=== PATIENT | female | born 1945 | race Caucasian/White ===

== ENCOUNTER 2022-01-28 10:14 | Inpatient (IN) | payer MEDICARE, OTHER, SELFPAY ==
[2022-01-28] VITALS (11 sets, daily range): BP systolic 110–134; BP diastolic 49–67; PULSE 70–82; RESP 14–20; TEMP 36.5–37.1; O2SAT 88–99
--- NOTE | ~2022-01-28 | US_ITS ---
EXAMINATION: US venous doppler [facility] DATE: 01/29/2022 11:06 INDICATION: Shortness of breath TECHNIQUE: Madrigal scale images without and with compression and Doppler images of the bilateral lower e xtremity veins were obtained. COMPARISON: None FINDINGS: The right common femoral vein, profunda femoral vein, femoral vein, popliteal vein, peroneal trunk, p osterior tibial veins, and greater saphenous vein are patent. There is partial thrombosis of the left femoral vein The left common femoral vein, profunda femoral v ein, popliteal vein, peroneal trunk, posterior tibial veins, and greater saphenous vein are patent. IMPRESSION: 1. Partial thrombosis of the left femoral vein, otherwise patent bilateral lower extremity veins. No evidence of deep venous thrombosis. Reviewed, dictated and finalized at location L. IMPRESSION: 1. Partial thrombosis of the left femoral vein, otherwise patent bilateral lowe r extremity veins. No evidence of deep venous thrombosis.
--- NOTE | ~2022-01-28 | CT_ITS ---
EXAMINATION: CT abdomen pelvis wo con DATE: 02/01/2022 16:43 INDICATION: Abdominal pain, nausea and vomiting TECHNIQUE: Computed tomography (CT) of the abdomen and pelvis was performed without intravenous contr ast. Automated exposure control and iterative reconstruction technique were employed. Exam dose: 112 3.29 mGy-cm total exam DLP. COMPARISON: None. FINDINGS: Bilateral lower lobe and lingular dependent infiltrate/atelectasis. Normal heart size. No p ericardial or pleural effusion. Status post cholecystectomy. No hepatic, splenic, pancreatic, and adrenal or renal space-occupying ma ss lesion is evident on this limited noncontrast examination. No bile duct or pancreatic duct dilatat ion. No urinary tract calculus or hydroureteronephrosis. There is prominent calcification of the abdominal aorta and iliac arteries but no aneurysm of these s tructures. Pelvic calcifications the origins of the celiac and superior mesenteric and renal arteries . There is stenosis of the celiac origin due to right diaphragmatic bruno, demonstrated to better adva ntage on 01/20/2022 CT chest examination. No intraperitoneal or retroperitoneal or pelvic mass lesion or adenopathy or ascites. Diverticulosis of left and right colon; no CT evidence of diverticulitis. No bowel obstruction, bowel wall thickening, pneumatosis or intraperitoneal free air. The urinary bladder appears unremarkable except for streak artifact from bilateral hip replacements. Right lower back generator device with posterior thoracic spinal neurotransmitter leads. There is mottled lucency of the skeletal structures, best demonstrated at the vertebrae sacrum and pe lvic bones; consider multiple myeloma and metastatic disease. Correlation with serum protein electrop horesis and bone scan may be of benefit as clinically appropriate. Degenerative changes of apophyseal joints with associated grade 1 anterolisthesis at L4-5. Moderately severe degenerative disc disease at L4-5. 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 Reviewed, dictated and finalized at location B. 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
--- NOTE | ~2022-01-28 | XR_ITS ---
EXAMINATION: XR chest 1V portable DATE: 01/28/2022 10:59 INDICATION: Dyspnea. Back pressure. TECHNIQUE: frontal and lateral views of the chest were obtained. COMPARISON: None FINDINGS: 1 streaky atelectasis/scarring at the right apex and at the lateral aspect of the bilateral lower clarence g zones. No other airspace opacities, pulmonary edema, pleural effusion or pneumothorax. The cardiome diastinal silhouette is normal. Spinal stimulator leads project over the central canal at the mid to lower thoracic spine distal tips at the level of T7. Globular amorphous calcification projecting bree g the middle facet of the right greater tuberosity consistent with likely infraspinatus calcific tend initis. IMPRESSION: 1. Mild streaky atelectasis/scarring at the right apex and bilateral lung bases. Reviewed, dictated and finalized at location A. IMPRESSION: 1. Mild streaky atelectasis/scarring at the right apex and bilateral lung bases .
--- NOTE | ~2022-01-28 | CT_ITS ---
EXAMINATION: CTA chest PE protocol DATE: 01/28/2022 12:43 INDICATION: Shortness of breath and cough TECHNIQUE: Computed tomography angiography (CTA) of the chest was performed with 200 mL Omnipaque-350 intravenous contrast timed to evaluate the pulmonary arteries. Coronal maximum intensity projection 3D-reconstructions were created by the technologist. The dose-length product (DLP) was 407.31 mGy-cm. Automated exposure control and iterative reconstruction technique were employed. COMPARISON: None. FINDINGS: The pulmonary arteries are well-opacified. A pulmonary embolism is identified in a peripher al branch in the posteromedial aspect of the right lower lobe.. There are small pleural effusions. No pathologically enlarged thoracic lymph nodes are identified. The heart size is normal. Calcified cor onary artery atherosclerosis is noted. There is severe emphysema. There is mild dependent atelectasis . Scarring and atelectasis are noted in the right lung apex. There is no pneumothorax. The gallbladde r is surgically absent. Neurostimulator leads end of the central spinal canal. There is moderate thor acic spondylosis. There is stenosis at the origin of the celiac axis, with poststenotic dilatation, caused by the diaphragmatic crura on the right IMPRESSION: 1. Right lower lobe pulmonary embolus. These findings were discussed with Dr. Greg Boyle DO i n the Emergency Department at 1256 hours on 01/28/2022 12:58 CDT. 2. Stenosis at the origin of the celiac axis causing by the right diaphragmatic crura which can be as sociated with median arcuate ligament syndrome. Reviewed, dictated and finalized at location B. IMPRESSION: 1. Right lower lobe pulmonary embolus. These findings were discussed with Dr. Maria G Boyle DO in the Emergency Department at 1256 hours on 01/28/2022 12: 58 CDT. 2. Stenosis at the origin of the celiac axis causing by the right diaphragmatic crura which can be associated with median arcuate ligament syndrome.
--- NOTE | 2022-01-28 10:33 | ECG_ITS ---
Measurements Intervals [place] Rate: 82 P: 50 [place]: 150 QRS: 12 QRSD: 87 T: 49 QT: 347 QTc: 406 Interpretive Statements SINUS RHYTHM BASELINE ARTIFACT- I, II, III, AVF NORMAL ECG Electronically Signed On 01-28-2022 10:54:33 CDT by Max Mckeon D.O.
[2022-01-28 10:54] LABS: Hematocrit 30.3 % (37.0-47.0); Hemoglobin 9.6 g/dL (12.0-15.0); Mean Corpuscular HGB Conc 31.7 g/dl (32-36); Mean Corpuscular Volume 110.6 fl (80-100); Mean Platelet Volume 8.3 fl (7.4-10.4); Platelet Count Result 265 k/mm3 (150-375); Red Blood Count 2.74 M/mm3 (4.2-5.4); White Blood Count 7.6 K/mm3 (4.5-10.0)
[2022-01-28 10:59] LABS: Alanine Aminotransferase 12 U/L (6-35); Albumin Level 2.6 g/dL (3.5-5.1); Alkaline Phosphatase 78 U/L (38-126); Anion Gap 3 mmol/L (8-16); Aspartate Amino Transferase 18 U/L (14-36); Bilirubin,Total 0.4 mg/dL (0.2-1.3); Blood Urea Nitrogen 28 mg/dL (7-17); Calcium 8.2 mg/dL (8.4-10.2); Carbon Dioxide 30 mmol/L (22-30); Chloride 98 mmol/L (98-107); Estimated CRCL calculation 34 ml/min; Estimated Glomerular Filt Rate 44; Glucose 85 mg/dL (65-110); Lipase 31 U/L (23-300); Potassium 4.1 mmol/L (3.4-5.0); Sodium 131 mmol/L (137-145)
--- NOTE | 2022-01-28 11:08 | ED.GENADULT ---
HPI - General Adult General Chief complaint: Upper Respiratory Infection Stated complaint: chest pressure since covid booster yesterday Source: RN notes reviewed History of Present Illness HPI narrative: Patient presents emergency department from home for shortness of breath. Patient states that for the past day she has been having feelings of shortness of breath like she cannot take a deep breath she also states that she has been having pressure in her mid back between her shoulder blades. She is she has a history of multiple DVTs and this feels similar to prior states she is currently on Eliquis which she has been taking but has had failure of her Eliquis before in the past states she did have a COVID booster 2 days ago. She denies any fevers or chills chest pain abdominal pain nausea vomiting or any other symptoms Related Data Allergies Allergy/AdvReac Type Severity Reaction Status Date / Time cefepime Allergy Weakness Verified 01/28/22 14:02 codeine AdvReac Nausea and Verified 01/28/22 14:03 Vomiting oxycodone AdvReac Nausea and Verified 01/28/22 14:03 Vomiting Review of Systems Review of Systems: Gen.: Denies fevers or chills ENT: Denies congestion Respiratory: Shortness of breath CV: Denies chest pain or palpitations GI: Denies abdominal pain nausea, emesis or diarrhea Musculoskeletal: reports pressure in her mid back Neuro: Denies numbness, tingling, weakness or focal weakness Skin: Denies rash Except as documented, all other systems reviewed and negative [facility] Past Medical History Medical History (Updated 01/28/22 @ 14:13 by Greg Boyle DO) Pulmonary embolism Social History Social History (Updated 01/28/22 @ 14:11 by Greg Boyle DO) Smoking status: Never smoker Exam Narrative: APPEARANCE: No acute distress, nontoxic, resting in bed EYES: EOMI HEENT: Normocephalic, atraumatic, OMM RESPIRATORY: No respiratory distress Clear to auscultation bilaterally with no rhonchi wheezing or rales. CARDIOVASCULAR: Regular rate and rhythm without murmurs rubs or gallops. ABDOMINAL: Soft, nontender, nondistended, no rebound or guarding MUSCULOSKELETAl: Moves all extremities. No clubbing, cyanosis or edema. Back: No midline thoracic lumbar tenderness palpation NEURO: Awake and alert. Following commands, speech normal, no focal deficits SKIN:: Warm, dry. No rashes lesions or abrasions PSYCHIATRIC: Normal affect/mood, Course Course Emergency Course: Discussed with Dr. Winston presentation work-up at this time recommends patient be started on heparin drip as the patient took Eliquis this morning recommends no bolus but drip only Rest with [facility] for Dr. Caballero agrees with admission Discussed with patient and family results of workup and diagnosis. Discussed need for admission. Patient and family understand and agree to current treatment plan Vital Signs Vital signs: Vital Signs Temperature 98.2 F 01/28/22 10:18 Temperature 98.2 F 01/28/22 10:18 Pulse Rate 76 01/28/22 11:45 Respiratory Rate 14 01/28/22 11:45 Blood Pressure 134/50 L 01/28/22 11:45 Pulse Oximetry 94 01/28/22 11:47 Oxygen Delivery Nasal Cannula 01/28/22 11:47 Oxygen Flow Rate 3 01/28/22 11:47 Medical Decision Making Vital Signs Vital Signs: Vital Signs Temperature 98.2 F 01/28/22 10:18 Temperature 98.2 F 01/28/22 10:18 Pulse Rate 76 01/28/22 11:45 Respiratory Rate 14 01/28/22 11:45 Blood Pressure 134/50 L 01/28/22 11:45 Pulse Oximetry 94 01/28/22 11:47 Oxygen Delivery Nasal Cannula 01/28/22 11:47 Oxygen Flow Rate 3 01/28/22 11:47 Lab Data Result diagrams: 01/28/22 10:45 01/28/22 10:45 Labs: Lab Results 01/28/22 01/28/22 01/28/22 Range/Units 10:44 10:45 10:45 WBC 7.6 (4.5-10.0) K/mm3 RBC 2.74 L (4.2-5.4) M/mm3 Hgb 9.6 L (12.0-15.0) g/dL Hct 30.3 L (37.0-47.0) % MCV 110.6 H (80-1
[2022-01-28 11:09] LABS: INR 1.7; Prothrombin Time 19.7 Seconds (11.1-14.7)
[2022-01-28 11:10] LABS: Partial Thromboplastin Time 31.8 SECONDS (22.3-36.8)
[2022-01-28 11:11] LABS: Troponin I < 0.012 ng/mL (0.000-0.034)
[2022-01-28 11:43] LABS: Band Neutrophils Percent 15 % (0-6); Eosinophils Absolute Manual 0.15 K/mm3 (0.02-0.5); Eosinophils Percent Manual 2 % (0-4); Lymphocytes Absolute Manual 1.59 K/mm3 (1.1-4.5); Monocytes Absolute Manual 0.22 K/mm3 (0.1-0.90); Monocytes Percent Manual 3 % (3-9); Neutrophils Absolute Manual 5.32 K/mm3 (1.7-7.2); Neutrophils Percent Manual 55 % (46-73); Nucleated Red Blood Cells 1 %; Plasma Cells 4; Total Cells Counted 100
[2022-01-28 11:45] LABS: Atypical Lymphocytes Present; Macrocytosis 1+ (NORMAL); Platelet Estimate Adequate (Adequate)
[2022-01-28 11:59] LABS: SARS-CoV-2 RNA PCR Negative
[2022-01-28 12:19] LABS: NT Pro B Type Natriuretic Pept 995 pg/mL (5-100)
--- NOTE | 2022-01-28 14:00 | PM.IMHP ---
H&P: HPI History of Present Illness Date/Time: 01/28/22 14:00 Chief Complaint: Chest pain. Narrative: This is a pleasant 76-year-old female with history of pulmonary embolism on apixaban, COPD, congestive heart failure, hypertension, insulin-dependent diabetes, and other comorbidities who presented to the emergency department from [place] for evaluation of chest pain. She is at [place] for rehab after she was hospitalized at [facility], reportedly with COVID at which time she was found to have a pulmonary embolism. She got very weak during her hospitalization and has only recently started walking with therapy. In any event, she got a COVID booster yesterday and last evening she started to on well with body aches, headache, mild sore throat, nonproductive cough, and nausea. This morning she began feeling as though she could not take in a deep breath and she was also feeling pressure in her upper back between the shoulder blades. [facility] did a rapid COVID screen on her today which was negative and they decided to send her in for further evaluation. Vital signs were stable on arrival to the emergency department though she did desaturate to 88% on room air and she has since been started on 3 L nasal cannula. Chest CT showed a right lower lobe pulmonary embolus and she is being admitted in this setting as the PE reportedly developed while she was on apixaban of which she states 100% compliance. She has no complaints at this time and she specifically denies documented fevers, current chest pain, vomiting, diarrhea, syncope, presyncope, sensation of racing heart, palpitations, orthopnea, and paroxysmal nocturnal dyspnea. Review of Systems Review of Systems: Twelve systems were reviewed. No sinus congestion. She denies dysphagia and concerns for aspiration. No focal weakness or paresthesias. She has not been able to walk for several months due to lower extremity weakness which she was told was ?due to a pinched nerve. No history of stroke or Guillain-[place] syndrome. No bowel incontinence or bladder incontinence or retention. She denies saddle anesthesia. She denies abdominal pain; CT of the chest showed stenosis at the origin of the celiac axis related to the right diaphragmatic crura which can be associated with median arcuate ligament syndrome. Except as documented, all other systems were reviewed and are negative. [facility] Past Medical History Medical History (Updated 01/28/22 @ 22:49 by Irma Felton PA-C) Anxiety Chronic obstructive pulmonary disease Deep venous thrombosis Gastroesophageal reflux disease Heart failure of unknown etiology Hyperlipidemia Hypertension Insulin dependent diabetes mellitus Peripheral vascular disease Pulmonary embolism Surgical History Surgical History (Updated 01/28/22 @ 22:36 by Irma Felton PA-C) History of bilateral hip replacements History of cataract extraction History of cholecystectomy History of total hysterectomy History of vascular surgery Left lower extremity stent. Family History Family History (Updated 01/28/22 @ 22:37 by Irma Felton PA-C) Other Diabetes mellitus Hypertension Social History Social History (Updated 01/28/22 @ 22:43 by Irma Felton PA-C) Social History: Surrogate medical decision maker: Vielka Bernardo or myriam Tyson. Code status: Full code. Smoking packs per day: 2 Smoking cigarettes per day: 40.0 Years smoked: 42 Smoking pack-years: 84.00 Smoking status: Former smoker Alcohol intake: never Substance use: never Living arrangements: with family Additional living arrangements comments: The patient lives in [place]. Currently in rehab at [facility]. Occupation/Education: retired Additional occupation/education comments: hvac tech. Spiritual care concerns: No Meds Home Medications and Allergies Home Medications Medication Instructions Recorded Con
[2022-01-28] MEDS: HEPARIN SOD/D5W 100 UNITS/ML 25,000 UNITS/250 ML BAG 13 UNITS IV CONT (14:01)
[2022-01-28 14:19] LABS: Troponin I < 0.012 ng/mL (0.000-0.034)
--- NOTE | 2022-01-28 16:25 | ADMGEN ---
This patient, Jillian Britt, was admitted to Medical Room 345-01. Patient/family oriented to hospital policies and general routines including ID bracelet, bed and alarms, visiting hours, pain management, procedures, bathroom and other care routines, personal items, smoking policy, room service/diet, and visiting hours. Information on how to activate the Rapid Response Team has been discussed. Patient/Family are encouraged to report perceived risks to care and to ask questions if they do not understand what they are told or what they should do.
[2022-01-28 17:37] LABS: Troponin I < 0.012 ng/mL (0.000-0.034)
[2022-01-28 20:33] LABS: Partial Thromboplastin Time 150.1 SECONDS (22.3-36.8)
[2022-01-28] MEDS: carvediloL 25 MG TABLET PO (21:19)
[2022-01-28] MEDS: hydrALAZINE 10 MG TABLET PO (21:19)
[2022-01-28] MEDS: MELATONIN 5 MG TABLET 10 MG PO (22:03)
[2022-01-28] MEDS: ALPRAZolam (*CRX) 0.5 MG TABLET PO (22:04)
[2022-01-28] MEDS: INSULIN GLARGINE (*BKC) 100 UNITS/ML 22 UNITS SUB-Q (22:13)
[2022-01-28 22:20] LABS: Glucose Point of Care 125 mg/dl (65-105)
[2022-01-29] VITALS (11 sets, daily range): BP systolic 112–123; BP diastolic 41–58; PULSE 67–88; RESP 16–20; TEMP 36.3–37; O2SAT 94–98
[2022-01-29 00:13] LABS: Iron 51 ug/dL (37-170)
[2022-01-29 00:27] LABS: Percent Iron Saturation 16 % (20-50)
[2022-01-29 01:06] LABS: Folic Acid > 20.0 ng/mL (2.76->20)
[2022-01-29 02:37] LABS: Hematocrit 27.6 % (37.0-47.0); Hemoglobin 8.9 g/dL (12.0-15.0); Mean Corpuscular HGB Conc 32.2 g/dl (32-36); Mean Corpuscular Hemoglobin 35.3 pg (26-34); Mean Corpuscular Volume 109.5 fl (80-100); Mean Platelet Volume 8.6 fl (7.4-10.4); Platelet Count Result 240 k/mm3 (150-375); Red Blood Count 2.52 M/mm3 (4.2-5.4); Red Cell Distribution Width 16.7 % (11.5-14.5); White Blood Count 6.1 K/mm3 (4.5-10.0)
[2022-01-29 02:50] LABS: Alanine Aminotransferase 11 U/L (6-35); Albumin Level 2.5 g/dL (3.5-5.1); Alkaline Phosphatase 79 U/L (38-126); Anion Gap 4 mmol/L (8-16); Aspartate Amino Transferase 17 U/L (14-36); Bilirubin,Total 0.3 mg/dL (0.2-1.3); Blood Urea Nitrogen 29 mg/dL (7-17); Calcium 8.4 mg/dL (8.4-10.2); Carbon Dioxide 29 mmol/L (22-30); Chloride 96 mmol/L (98-107); Estimated CRCL calculation 34 ml/min; Estimated Glomerular Filt Rate 44; Glucose 125 mg/dL (65-110); Hemoglobin A1C 6.4 % (<5.7); Magnesium 1.9 mg/dL (1.6-2.3); Potassium 3.9 mmol/L (3.4-5.0); Sodium 129 mmol/L (137-145)
[2022-01-29 03:04] LABS: Band Neutrophils Percent 7 % (0-6); Eosinophils Absolute Manual 0.06 K/mm3 (0.02-0.5); Eosinophils Percent Manual 1 % (0-4); Lymphocytes Absolute Manual 1.15 K/mm3 (1.1-4.5); Lymphocytes Percent Manual 19 % (18-44); Monocytes Absolute Manual 0.42 K/mm3 (0.1-0.90); Monocytes Percent Manual 7 % (3-9); Neutrophils Absolute Manual 4.33 K/mm3 (1.7-7.2); Neutrophils Percent Manual 64 % (46-73); Total Cells Counted 100
[2022-01-29 03:05] LABS: Atypical Lymphocytes Present; Plasma Cells 2; Smudge Cells PRESENT
[2022-01-29 03:08] LABS: Platelet Estimate Adequate (Adequate)
[2022-01-29 03:09] LABS: Anisocytosis 1+ (NORMAL); Macrocytosis 1+ (NORMAL)
[2022-01-29 06:47] LABS: Creatinine Urine 26.4 mg/dL
[2022-01-29 06:54] LABS: Sodium Urine Random 25 meq/L
[2022-01-29 08:02] LABS: Glucose Point of Care 84 mg/dl (65-105)
[2022-01-29] MEDS: FUROSEMIDE INJ 40 MG/4 ML VIAL IV PUSH ×2 (09:23→17:12)
[2022-01-29] MEDS: LOSARTAN POTASSIUM 50 MG TABLET PO (09:24)
[2022-01-29] MEDS: carvediloL 25 MG TABLET PO ×2 (09:24→17:12)
[2022-01-29] MEDS: hydrALAZINE 10 MG TABLET PO ×2 (09:24→17:12)
[2022-01-29] MEDS: PANTOPRAZOLE 40 MG TABLET PO (09:24)
[2022-01-29] MEDS: ASPIRIN 81 MG ENTERIC TABLET PO (09:24)
[2022-01-29] MEDS: MIRABEGRON 50 MG ER TABLET PO (09:24)
[2022-01-29] MEDS: CALCIUM CARBONATE (OSCAL) 500 MG TABLET PO (09:24)
[2022-01-29] MEDS: PSYLLIUM POWDER PACKET 1 PACKET PO (09:24)
[2022-01-29] MEDS: amLODIPine BESYLATE 5 MG TABLET PO (09:24)
[2022-01-29] MEDS: LIDOCAINE 5% PATCH 1 PATCH TRANSDERM (09:25)
[2022-01-29] MEDS: FLUTICASONE PROPIONATE 0.05% NA SPR 16 GM BTL (*BKC) 2 SPRAY NASAL (09:25)
[2022-01-29] MEDS: HYDROcodone/acetaminophen (*CRX) 5-325 MG TABLET 1 TAB PO ×2 (09:25→17:37)
[2022-01-29 09:42] LABS: Partial Thromboplastin Time 141.7 SECONDS (22.3-36.8)
[2022-01-29 11:26] LABS: Glucose Point of Care 125 mg/dl (65-105)
[2022-01-29] MEDS: HEPARIN SOD/D5W 100 UNITS/ML 25,000 UNITS/250 ML BAG 9 UNITS IV CONT ×2 (11:49→12:27)
--- NOTE | 2022-01-29 12:22 | PM.IMPN ---
Progress Note: A&P Assessment and Plan (1) Pulmonary embolism on right: Code(s): I26.99 - Other pulmonary embolism without acute cor pulmonale Status: Acute Assessment and Plan: Patient was brought to the ER today with shortness of breath and pain between her shoulder blades. CTA of the chest showed a right-sided pulmonary embolism despite her being on apixaban. Dr. Winston was consulted by the ED physician at this time he recommends starting her on a heparin drip. Await oncology/hematology counseling services manager. Will start the patient on Coumadin. She has failed Eliquis. (2) Lower extremity edema: Code(s): R60.0 - Localized edema Status: Acute Assessment and Plan: Improved. (3) Heart failure of unknown etiology: Code(s): I50.9 - Heart failure, unspecified Status: Acute Assessment and Plan: Monitor (4) Hypoxia: Code(s): R09.02 - Hypoxemia Status: Acute Assessment and Plan: Presumably related to PE though it is not very large. Wean oxygen as tolerated. (5) Renal failure: Code(s): N19 - Unspecified kidney failure Status: Acute Assessment and Plan: Baseline unknown. Records requested from [facility] for review. Monitor renal function while diuresing. (6) Hyponatremia: Code(s): E87.1 - Hypo-osmolality and hyponatremia Status: Acute Assessment and Plan: Probably due to extra volume. Monitor while diuresing. (7) Macrocytic anemia: Code(s): D53.9 - Nutritional anemia, unspecified Status: Acute Assessment and Plan: Check iron studies as well as B12 and folates. (8) Hypertension: Code(s): I10 - Essential (primary) hypertension Status: Acute Assessment and Plan: Blood pressures were reviewed and they are stable. Continue antihypertensives and monitor. (9) Chronic obstructive pulmonary disease: Code(s): J44.9 - Chronic obstructive pulmonary disease, unspecified Status: Acute Assessment and Plan: No acute issues. Continue inhalers. (10) Insulin dependent diabetes mellitus: Status: Acute Assessment and Plan: Continue basal insulin. Initiate sliding scale insulin, Accu-Cheks, and hypoglycemic protocol. Subjective Date/time seen: 01/29/22 12:22 No complaints Exam Narrative: General: Well-developed female sitting up in bed in no acute distress. Weight: 70.45 kg. BMI: 25.1. HEENT: PERRL, EOMI. Conjunctivae anicteric. Oral mucosa moist. Neck: Supple. No jugular venous distention. Respiratory: Respirations are nonlabored and she is speaking in full sentences. Lungs are clear to auscultation. Cardiovascular: Regular rate and rhythm with S1-S2. Gastrointestinal: Abdomen is soft, nontender, and nondistended with positive bowel sounds. Skin: Warm and dry. Generalized pallor. Bruising on the knees and anterior shins which she states is from hitting them on the transfer device when she is getting up. Extremities: No cyanosis or clubbing. 3+ annabelle ankle edema up to the knees. Equivocal Melissa sign bilaterally. Neurological: Alert and oriented Cranial nerves 2-12 are grossly intact. Speech is clear. No facial asymmetry. Good strength in the upper extremities. Bilateral hip flexors are weak, she could barely raise her right leg off of the bed and could only raise her left leg and inter so off of the bed. Is not a new finding for her as detailed in HPI. She is neurovascularly intact. Psychiatric: Pleasant and cooperative with normal mood and affect. Objective Data Vital Signs Vital Signs: Vital Signs - 24 hr 01/28/22 15:35 01/28/22 15:30 01/28/22 21:19 Temperature 97.7 F Pulse Rate 70 77 80 Respiratory Rate 14 16 Blood Pressure 114/66 110/49 L Pulse Oximetry 98 98 01/28/22 20:00 01/28/22 22:40 01/29/22 00:00 Temperature 98.8 F Pulse Rate 78 80 72 Respiratory Rate 20 Blood Pressure 12
[2022-01-29 16:44] LABS: Glucose Point of Care 202 mg/dl (65-105)
--- NOTE | 2022-01-29 17:50 | PDONCCN ---
HPI - Date of Consult Date/Time: 01/29/22 17:50 Requesting Physician: Mac Caballero MD Primary Care Provider: Shabbir JeanMD - Consult Narrative Reason for consult: Hypercoagulable state and macrocytic anemia Narrative: Jillian Britt is a 76 year old female with history of congestive heart failure, insulin-dependent diabetes, hypertension, COPD and pulmonary embolism after COVID infection almost 1 year ago. She was initially treated with Eliquis for 3 months duration. She developed another apparently unprovoked pulmonary embolism in April of 2021. She was restarted on Eliquis. According the patient she had another episode of PE 2 months ago while she was on Eliquis. She was continued on Eliquis. Nausea came into the hospital with complain of chest pain. CT chest showed right lower lobe pulmonary embolism. According the patient she has been compliant with taking Eliquis. Doppler study also showed partial thrombosis of the left femoral vein. Patient was started on heparin drip. She also has bruising in the lower and upper extremities. He denies any bleeding. Labs also showed macrocytic anemia. Patient has a history of getting vitamin B12 injection at the primary care office. Review of Systems - Review of Systems All systems reviewed & are unremarkable except as noted in [facility] and [facility] Medical History: Medical History (Last Updated 01/28/22 @ 22:49 by Irma Felton PA-C) Anxiety Chronic obstructive pulmonary disease Deep venous thrombosis Gastroesophageal reflux disease Heart failure of unknown etiology Hyperlipidemia Hypertension Insulin dependent diabetes mellitus Peripheral vascular disease Pulmonary embolism Surgical History: Surgical History (Last Updated 01/28/22 @ 22:36 by Irma Felton PA-C) History of bilateral hip replacements History of cataract extraction History of cholecystectomy History of total hysterectomy History of vascular surgery Left lower extremity stent. Family History: Family History (Last Updated 01/28/22 @ 22:37 by Irma Felton PA-C) Other Diabetes mellitus Hypertension - Social History Social History: Social History (Last Updated 01/28/22 @ 22:43 by Irma Felton PA-C) Alcohol Use: Alcohol intake: never Substance Use: Substance use: never Others: Spiritual care concerns: No Living Arrangements: Living arrangements: with family Oppucation/Education: Occupation/Education: retired Smoking Status: Smoking status: Former smoker Approximate Smoking End Date: 2019 Smoking Pack-years: Smoking packs per day: 2 Smoking cigarettes per day: 40.0 Years smoked: 42 Smoking pack-years: 84.00 Meds Home Medications Medication Instructions Recorded Confirmed Type acetaminophen 160 mg/5 mL oral 650 mg PO Q6H PRN pain or fever 01/28/22 01/28/22 History elixir albuterol sulfate 90 mcg/actuation 1 puff inhalation Q6H PRN Wheezing 01/28/22 01/28/22 History aerosol inhaler (ProAir HFA) alprazolam 0.5 mg tablet 0.5 mg PO DAILY 01/28/22 01/28/22 History amlodipine 5 mg tablet 5 mg PO DAILY 01/28/22 01/28/22 History apixaban 5 mg tablet (Eliquis) 5 mg PO BID 01/28/22 01/28/22 History aspirin 81 mg tablet,delayed 81 mg PO DAILY 01/28/22 01/28/22 History release benzonatate 200 mg capsule 200 mg PO TID PRN Cough 01/28/22 01/28/22 History bisacodyl 5 mg tablet,delayed 10 mg PO DAILY PRN Constipation 01/28/22 01/28/22 History release calcium carbonate 500 mg calcium 500 mg PO DAILY 01/28/22 01/28/22 History (1,250 mg) tablet carvedilol 25 mg tablet 25 mg PO BID 01/28/22 01/28/22 History conjugated estrogens 1.25 mg 1.25 mg PO DAILY 01/28/22 01/28/22 History tablet (Premarin) cyanocobalamin (vitamin B-12) 1,000 mcg IM MONTHLY 01/28/22 01/28/22 History 1,000 mcg/mL injection solution dextromethorphan-benzocaine 5 1 erick PO Q2H PRN Sore Throat 01/28
[2022-01-29 19:01] LABS: Partial Thromboplastin Time 101.1 SECONDS (22.3-36.8)
[2022-01-29] MEDS: CYANOCOBALAMIN INJ 1,000 MCG/ML VIAL 1000 MCG IM (19:52)
[2022-01-29] MEDS: WARFARIN (*PBKC) 2 MG, WARFARIN (*PBKC) 5 MG 7 MG PO (20:52)
[2022-01-29] MEDS: INSULIN GLARGINE (*BKC) 100 UNITS/ML 22 UNITS SUB-Q (20:52)
[2022-01-29] MEDS: ALPRAZolam (*CRX) 0.5 MG TABLET PO (20:52)
[2022-01-29] MEDS: MELATONIN 5 MG TABLET 10 MG PO (21:24)
[2022-01-29 23:21] LABS: Glucose Point of Care 221 mg/dl (65-105)
[2022-01-30] VITALS (13 sets, daily range): BP systolic 101–128; BP diastolic 51–59; PULSE 72–87; RESP 16–18; TEMP 36–36.6; O2SAT 91–96
[2022-01-30 01:33] LABS: Partial Thromboplastin Time 115.8 SECONDS (22.3-36.8)
[2022-01-30 08:05] LABS: Glucose Point of Care 127 mg/dl (65-105)
--- NOTE | 2022-01-30 08:39 | PCPTNOTE ---
Attempted PT evaluation, patient refused stating I really dont feel good. Per patient, she uses a sit to stand lift or slide board to get to wheelchair. RN aware. Will follow.
[2022-01-30 08:41] LABS: INR 1.2; Prothrombin Time 14.6 Seconds (11.1-14.7)
[2022-01-30] MEDS: UMECLIDINIUM/VILANTEROL 62.5-25 MCG ELLIPTA 1 PUFF INHALATION (08:46)
[2022-01-30 09:00] LABS: Partial Thromboplastin Time 113.5 SECONDS (22.3-36.8)
[2022-01-30] MEDS: HEPARIN SOD/D5W 100 UNITS/ML 25,000 UNITS/250 ML BAG 7 UNITS IV CONT ×2 (09:49→12:46)
[2022-01-30] MEDS: HYDROcodone/acetaminophen (*CRX) 5-325 MG TABLET 1 TAB PO ×2 (09:57→18:10)
[2022-01-30] MEDS: ESTROGENS, CONJUGATED 0.625 MG TABLET 1.25 MG PO (09:58)
[2022-01-30] MEDS: FUROSEMIDE INJ 40 MG/4 ML VIAL IV PUSH (10:00)
[2022-01-30] MEDS: FLUTICASONE PROPIONATE 0.05% NA SPR 16 GM BTL (*BKC) 2 SPRAY NASAL (10:01)
[2022-01-30] MEDS: CALCIUM CARBONATE (OSCAL) 500 MG TABLET PO (10:02)
[2022-01-30] MEDS: hydrALAZINE 10 MG TABLET PO (10:02)
[2022-01-30] MEDS: ASPIRIN 81 MG ENTERIC TABLET PO (10:03)
[2022-01-30] MEDS: amLODIPine BESYLATE 5 MG TABLET PO (10:03)
[2022-01-30] MEDS: LIDOCAINE 5% PATCH 1 PATCH TRANSDERM (10:04)
[2022-01-30] MEDS: MIRABEGRON 50 MG ER TABLET PO (10:04)
[2022-01-30] MEDS: LOSARTAN POTASSIUM 50 MG TABLET PO (10:04)
[2022-01-30] MEDS: carvediloL 25 MG TABLET PO ×2 (10:05→18:10)
[2022-01-30] MEDS: PSYLLIUM POWDER PACKET 1 PACKET PO (10:05)
[2022-01-30] MEDS: PANTOPRAZOLE 40 MG TABLET PO (10:05)
[2022-01-30 11:55] LABS: Glucose Point of Care 219 mg/dl (65-105)
--- NOTE | 2022-01-30 12:25 | PM.IMPN ---
Progress Note: A&P Assessment and Plan (1) Pulmonary embolism on right: Code(s): I26.99 - Other pulmonary embolism without acute cor pulmonale Status: Acute Assessment and Plan: Heparin drip with transition to Coumadin. INR daily (2) Lower extremity edema: Code(s): R60.0 - Localized edema Status: Acute Assessment and Plan: Improved. (3) Heart failure of unknown etiology: Code(s): I50.9 - Heart failure, unspecified Status: Acute Assessment and Plan: Monitor (4) Hypoxia: Code(s): R09.02 - Hypoxemia Status: Acute Assessment and Plan: Presumably related to PE though it is not very large. Wean oxygen as tolerated. (5) Renal failure: Code(s): N19 - Unspecified kidney failure Status: Acute Assessment and Plan: Monitor (6) Hyponatremia: Code(s): E87.1 - Hypo-osmolality and hyponatremia Status: Acute Assessment and Plan: Probably due to extra volume. Monitor while diuresing. (7) Macrocytic anemia: Code(s): D53.9 - Nutritional anemia, unspecified Status: Acute Assessment and Plan: Check iron studies as well as B12 and folates. (8) Hypertension: Code(s): I10 - Essential (primary) hypertension Status: Acute Assessment and Plan: Blood pressures were reviewed and they are stable. Continue antihypertensives and monitor. (9) Chronic obstructive pulmonary disease: Code(s): J44.9 - Chronic obstructive pulmonary disease, unspecified Status: Acute Assessment and Plan: No acute issues. Continue inhalers. (10) Insulin dependent diabetes mellitus: Status: Acute Assessment and Plan: Continue basal insulin. Initiate sliding scale insulin, Accu-Cheks, and hypoglycemic protocol. Subjective Date/time seen: 01/30/22 12:25 No complaints Exam Narrative: General: Well-developed female sitting up in bed in no acute distress. Weight: 70.45 kg. BMI: 25.1. HEENT: PERRL, EOMI. Conjunctivae anicteric. Oral mucosa moist. Neck: Supple. No jugular venous distention. Respiratory: Respirations are nonlabored and she is speaking in full sentences. Lungs are clear to auscultation. Cardiovascular: Regular rate and rhythm with S1-S2. Gastrointestinal: Abdomen is soft, nontender, and nondistended with positive bowel sounds. Skin: Warm and dry. Generalized pallor. Bruising on the knees and anterior shins which she states is from hitting them on the transfer device when she is getting up. Extremities: No cyanosis or clubbing. 3+ annabelle ankle edema up to the knees. Equivocal Melissa sign bilaterally. Neurological: Alert and oriented Cranial nerves 2-12 are grossly intact. Speech is clear. No facial asymmetry. Good strength in the upper extremities. Bilateral hip flexors are weak, she could barely raise her right leg off of the bed and could only raise her left leg and inter so off of the bed. Is not a new finding for her as detailed in HPI. She is neurovascularly intact. Psychiatric: Pleasant and cooperative with normal mood and affect. Objective Data Vital Signs Vital Signs: Vital Signs - 24 hr 01/29/22 13:40 01/29/22 17:12 01/29/22 16:00 Temperature 97.7 F Pulse Rate 72 72 74 Respiratory Rate 16 Blood Pressure 118/41 L Pulse Oximetry 94 01/29/22 21:58 01/29/22 20:00 01/30/22 00:00 Temperature 98.6 F Pulse Rate 83 88 72 Respiratory Rate 18 Blood Pressure 112/58 L Pulse Oximetry 96 01/30/22 04:00 01/30/22 06:00 01/30/22 10:05 Temperature 97.9 F Pulse Rate 73 75 75 Respiratory Rate 18 Blood Pressure 117/59 L Pulse Oximetry 96 Intake/Output Intake/Output: Intake & Output 01/27/22 01/28/22 01/29/22 01/30/22 23:59 23:59 23:59 23:59 Intake Total 240 1770 1040 Output Total 900 Balance 240 1770 140 Meds/Results Medications: Active Medications Generic Name
[2022-01-30 16:25] LABS: Partial Thromboplastin Time 97.9 SECONDS (22.3-36.8)
[2022-01-30 17:37] LABS: Glucose Point of Care 141 mg/dl (65-105)
[2022-01-30] MEDS: WARFARIN (*PBKC) 2 MG, WARFARIN (*PBKC) 5 MG 7 MG PO (18:10)
[2022-01-30] MEDS: ALPRAZolam (*CRX) 0.5 MG TABLET PO (20:39)
[2022-01-30] MEDS: MELATONIN 5 MG TABLET 10 MG PO (20:39)
[2022-01-30] MEDS: INSULIN GLARGINE (*BKC) 100 UNITS/ML 22 UNITS SUB-Q (20:39)
[2022-01-30 22:00] LABS: Partial Thromboplastin Time 98.8 SECONDS (22.3-36.8)
[2022-01-30 22:03] LABS: Glucose Point of Care 141 mg/dl (65-105)
[2022-01-31] VITALS (12 sets, daily range): BP systolic 107–121; BP diastolic 56–66; PULSE 75–90; RESP 16–18; TEMP 36.3–36.6; O2SAT 92–94
[2022-01-31 06:00] LABS: Anion Gap 3 mmol/L (8-16); Blood Urea Nitrogen 38 mg/dL (7-17); Calcium 8.5 mg/dL (8.4-10.2); Carbon Dioxide 32 mmol/L (22-30); Chloride 99 mmol/L (98-107); Estimated CRCL calculation 27 ml/min; Estimated Glomerular Filt Rate 34; Glucose 120 mg/dL (65-110); Potassium 4.4 mmol/L (3.4-5.0); Sodium 134 mmol/L (137-145)
[2022-01-31 06:03] LABS: INR 1.7; Prothrombin Time 19.4 Seconds (11.1-14.7)
[2022-01-31 07:01] LABS: Partial Thromboplastin Time 122.2 SECONDS (22.3-36.8)
[2022-01-31 07:30] LABS: Glucose Point of Care 132 mg/dl (65-105)
[2022-01-31] MEDS: UMECLIDINIUM/VILANTEROL 62.5-25 MCG ELLIPTA 1 PUFF INHALATION (09:23)
[2022-01-31] MEDS: HYDROcodone/acetaminophen (*CRX) 5-325 MG TABLET 1 TAB PO ×3 (09:28→21:33)
[2022-01-31] MEDS: ASPIRIN 81 MG ENTERIC TABLET PO (09:29)
[2022-01-31] MEDS: CALCIUM CARBONATE (OSCAL) 500 MG TABLET PO (09:29)
[2022-01-31] MEDS: amLODIPine BESYLATE 5 MG TABLET PO (09:29)
[2022-01-31] MEDS: ERGOCALCIFEROL 50,000 UNIT CAPSULE 50000 UNITS PO (09:30)
[2022-01-31] MEDS: carvediloL 25 MG TABLET PO ×2 (09:30→18:00)
[2022-01-31] MEDS: ESTROGENS, CONJUGATED 0.625 MG TABLET 1.25 MG PO (09:30)
[2022-01-31] MEDS: FUROSEMIDE 20 MG TABLET 60 MG PO (09:31)
[2022-01-31] MEDS: FLUTICASONE PROPIONATE 0.05% NA SPR 16 GM BTL (*BKC) 2 SPRAY NASAL (09:31)
[2022-01-31] MEDS: hydrALAZINE 10 MG TABLET PO ×2 (09:31→18:00)
[2022-01-31] MEDS: LOSARTAN POTASSIUM 50 MG TABLET PO (09:33)
[2022-01-31] MEDS: PANTOPRAZOLE 40 MG TABLET PO (09:34)
[2022-01-31] MEDS: PSYLLIUM POWDER PACKET 1 PACKET PO (09:34)
[2022-01-31] MEDS: MIRABEGRON 50 MG ER TABLET PO (09:34)
--- NOTE | 2022-01-31 10:16 | PM.IMPN ---
Progress Note: A&P Assessment and Plan (1) Pulmonary embolism on right: Code(s): I26.99 - Other pulmonary embolism without acute cor pulmonale Status: Acute Assessment and Plan: Heparin drip with transition to Coumadin. INR daily (2) Lower extremity edema: Code(s): R60.0 - Localized edema Status: Acute Assessment and Plan: Improved. (3) Heart failure of unknown etiology: Code(s): I50.9 - Heart failure, unspecified Status: Acute Assessment and Plan: Monitor (4) Hypoxia: Code(s): R09.02 - Hypoxemia Status: Acute Assessment and Plan: Presumably related to PE though it is not very large. Wean oxygen as tolerated. (5) Renal failure: Code(s): N19 - Unspecified kidney failure Status: Acute Assessment and Plan: Monitor (6) Hyponatremia: Code(s): E87.1 - Hypo-osmolality and hyponatremia Status: Acute Assessment and Plan: Probably due to extra volume. Monitor while diuresing. (7) Macrocytic anemia: Code(s): D53.9 - Nutritional anemia, unspecified Status: Acute Assessment and Plan: Check iron studies as well as B12 and folates. (8) Hypertension: Code(s): I10 - Essential (primary) hypertension Status: Acute Assessment and Plan: Blood pressures were reviewed and they are stable. Continue antihypertensives and monitor. (9) Chronic obstructive pulmonary disease: Code(s): J44.9 - Chronic obstructive pulmonary disease, unspecified Status: Acute Assessment and Plan: No acute issues. Continue inhalers. (10) Insulin dependent diabetes mellitus: Status: Acute Assessment and Plan: Continue basal insulin. Initiate sliding scale insulin, Accu-Cheks, and hypoglycemic protocol. Subjective Date/time seen: 01/31/22 10:16 No new complaints. Exam Narrative: General: Well-developed female sitting up in bed in no acute distress. Weight: 70.45 kg. BMI: 25.1. HEENT: PERRL, EOMI. Conjunctivae anicteric. Oral mucosa moist. Neck: Supple. No jugular venous distention. Respiratory: Respirations are nonlabored and she is speaking in full sentences. Lungs are clear to auscultation. Cardiovascular: Regular rate and rhythm with S1-S2. Gastrointestinal: Abdomen is soft, nontender, and nondistended with positive bowel sounds. Skin: Warm and dry. Generalized pallor. Bruising on the knees and anterior shins which she states is from hitting them on the transfer device when she is getting up. Extremities: No cyanosis or clubbing. 3+ annabelle ankle edema up to the knees. Equivocal Melissa sign bilaterally. Neurological: Alert and oriented Cranial nerves 2-12 are grossly intact. Speech is clear. No facial asymmetry. Good strength in the upper extremities. Bilateral hip flexors are weak, she could barely raise her right leg off of the bed and could only raise her left leg and inter so off of the bed. Is not a new finding for her as detailed in HPI. She is neurovascularly intact. Psychiatric: Pleasant and cooperative with normal mood and affect. Objective Data Vital Signs Vital Signs: Vital Signs - 24 hr 01/30/22 15:33 01/30/22 18:10 01/30/22 12:04 Temperature 96.8 F L Pulse Rate 80 77 87 Respiratory Rate 16 Blood Pressure 101/51 L Pulse Oximetry 93 Oxygen Delivery 01/30/22 16:04 01/30/22 20:33 01/30/22 20:00 Temperature 97.6 F Pulse Rate 80 86 84 Respiratory Rate 18 Blood Pressure 128/52 L Pulse Oximetry 93 Oxygen Delivery 01/31/22 00:00 01/30/22 21:19 01/31/22 04:00 Temperature Pulse Rate 90 84 Respiratory Rate Blood Pressure Pulse Oximetry 91 Oxygen Delivery Room Air 01/31/22 05:39 01/31/22 08:52 01/31/22 09:30 Temperature 97.7 F Pulse Rate 85 80 Respiratory Rate 16 Blood Pressure 116/66 Pulse Oximetry 94 Oxygen Delivery Room Air Intake/O
--- NOTE | 2022-01-31 10:31 | P.PNIM_ITS ---
Progress Note: A&P Assessment and Plan (1) Pulmonary embolism on right: Code(s): I26.99 - Other pulmonary embolism without acute cor pulmonale Status: Acute Assessment and Plan: Heparin drip with transition to Coumadin. INR daily (2) Lower extremity edema: Code(s): R60.0 - Localized edema Status: Acute Assessment and Plan: Improved. (3) Heart failure of unknown etiology: Code(s): I50.9 - Heart failure, unspecified Status: Acute Assessment and Plan: Monitor (4) Hypoxia: Code(s): R09.02 - Hypoxemia Status: Acute Assessment and Plan: Presumably related to PE though it is not very large. Wean oxygen as tolerated. (5) Renal failure: Code(s): N19 - Unspecified kidney failure Status: Acute Assessment and Plan: Monitor (6) Hyponatremia: Code(s): E87.1 - Hypo-osmolality and hyponatremia Status: Acute Assessment and Plan: Probably due to extra volume. Monitor while diuresing. (7) Macrocytic anemia: Code(s): D53.9 - Nutritional anemia, unspecified Status: Acute Assessment and Plan: Check iron studies as well as B12 and folates. (8) Hypertension: Code(s): I10 - Essential (primary) hypertension Status: Acute Assessment and Plan: Blood pressures were reviewed and they are stable. Continue antihypertensives and monitor. (9) Chronic obstructive pulmonary disease: Code(s): J44.9 - Chronic obstructive pulmonary disease, unspecified Status: Acute Assessment and Plan: No acute issues. Continue inhalers. (10) Insulin dependent diabetes mellitus: Status: Acute Assessment and Plan: Continue basal insulin. Initiate sliding scale insulin, Accu-Cheks, and hypoglycemic protocol. Subjective Date/time seen: 01/31/22 10:31 no complaints Exam Narrative: General: Well-developed female sitting up in bed in no acute distress. Weight: 70.45 kg. BMI: 25.1. HEENT: PERRL, EOMI. Conjunctivae anicteric. Oral mucosa moist. Neck: Supple. No jugular venous distention. Respiratory: Respirations are nonlabored and she is speaking in full sentences. Lungs are clear to auscultation. Cardiovascular: Regular rate and rhythm with S1-S2. Gastrointestinal: Abdomen is soft, nontender, and nondistended with positive bowel sounds. Skin: Warm and dry. Generalized pallor. Bruising on the knees and anterior shins which she states is from hitting them on the transfer device when she is getting up. Extremities: No cyanosis or clubbing. 3+ annabelle ankle edema up to the knees. Equivocal Melissa sign bilaterally. Neurological: Alert and oriented Cranial nerves 2-12 are grossly intact. S peech is clear. No facial asymmetry. Good strength in the upper extremities. Bilateral hip flexors are weak, she could barely raise her right leg off of the bed and could only raise her left leg and inter so off of the bed. Is not a new finding for her as detailed in HPI. She is neurovascularly intact. Psychiatric: Pleasant and cooperative with normal mood and affect. Objective Data Vital Signs Vital Signs: Vital Signs - 24 hr 01/30/22 15:33 01/30/22 18:10 01/30/22 12:04 Temperature 96.8 F L Pulse Rate 80 77 87 Respiratory Rate 16 Blood Pressure 101/51 L Pulse Oximetry 93
[2022-01-31 11:56] LABS: Glucose Point of Care 128 mg/dl (65-105)
[2022-01-31 14:36] LABS: Partial Thromboplastin Time 82.5 SECONDS (22.3-36.8)
[2022-01-31] MEDS: ONDANSETRON HCL ODT 4 MG TABLET PO (15:42)
[2022-01-31 16:51] LABS: Glucose Point of Care 203 mg/dl (65-105)
[2022-01-31] MEDS: WARFARIN (*PBKC) 5 MG TABLET PO (18:00)
[2022-01-31] MEDS: SIMETHICONE 125 MG CHEW TAB PO (18:55)
[2022-01-31] MEDS: MELATONIN 5 MG TABLET 10 MG PO (20:37)
[2022-01-31] MEDS: ALPRAZolam (*CRX) 0.5 MG TABLET PO (20:37)
[2022-01-31] MEDS: INSULIN GLARGINE (*BKC) 100 UNITS/ML 22 UNITS SUB-Q (20:41)
[2022-01-31] MEDS: SUCRALFATE 1 GM TABLET PO (20:43)
[2022-01-31 21:32] LABS: Partial Thromboplastin Time 73.6 SECONDS (22.3-36.8)
[2022-01-31 22:49] LABS: Glucose Point of Care 172 mg/dl (65-105)
[2022-01-31] MEDS: MORPHINE SULFATE (*CRX) 4 MG/ML INJ 1 MG IV PUSH (23:43)
[2022-02-01] VITALS (12 sets, daily range): BP systolic 98–122; BP diastolic 50–54; PULSE 71–83; RESP 16–20; TEMP 36.3–36.8; O2SAT 90–92
[2022-02-01 01:10] LABS: INR 2.6; Prothrombin Time 26.8 Seconds (11.1-14.7)
[2022-02-01 07:46] LABS: Glucose Point of Care 127 mg/dl (65-105)
[2022-02-01] MEDS: UMECLIDINIUM/VILANTEROL 62.5-25 MCG ELLIPTA 1 PUFF INHALATION (08:34)
[2022-02-01] MEDS: BENZONATATE 100 MG CAPSULE 200 MG PO (09:41)
[2022-02-01] MEDS: PANTOPRAZOLE 40 MG TABLET PO (09:42)
[2022-02-01] MEDS: ESTROGENS, CONJUGATED 0.625 MG TABLET 1.25 MG PO (09:42)
[2022-02-01] MEDS: MIRABEGRON 50 MG ER TABLET PO (09:42)
[2022-02-01] MEDS: CALCIUM CARBONATE (OSCAL) 500 MG TABLET PO (09:42)
[2022-02-01] MEDS: hydrALAZINE 10 MG TABLET PO ×3 (09:42→18:05)
[2022-02-01] MEDS: carvediloL 25 MG TABLET PO ×2 (09:42→18:06)
[2022-02-01] MEDS: LOSARTAN POTASSIUM 50 MG TABLET PO (09:43)
[2022-02-01] MEDS: FLUTICASONE PROPIONATE 0.05% NA SPR 16 GM BTL (*BKC) 2 SPRAY NASAL (09:43)
[2022-02-01] MEDS: FUROSEMIDE 20 MG TABLET 60 MG PO (09:43)
[2022-02-01] MEDS: ASPIRIN 81 MG ENTERIC TABLET PO (09:43)
[2022-02-01] MEDS: amLODIPine BESYLATE 5 MG TABLET PO (09:43)
[2022-02-01] MEDS: BISACODYL 5 MG TABLET EC 10 MG PO (09:47)
[2022-02-01 11:46] LABS: Glucose Point of Care 163 mg/dl (65-105)
--- NOTE | 2022-02-01 12:37 | PM.DS ---
DS: Admitting Diagnosis Discharge Date February 21, 2022 Admitting Diagnosis PE DS: Discharge Diagnosis Discharge Diagnosis (1) Pulmonary embolism on right: Code(s): I26.99 - Other pulmonary embolism without acute cor pulmonale Status: Acute Assessment and Plan: INR will need to be monitored as an outpatient. The facility can do this. Coumadin on discharge S patient failed Eliquis (2) Lower extremity edema: Code(s): R60.0 - Localized edema Status: Acute Assessment and Plan: Improved. (3) Heart failure of unknown etiology: Code(s): I50.9 - Heart failure, unspecified Status: Acute Assessment and Plan: Monitor (4) Hypoxia: Code(s): R09.02 - Hypoxemia Status: Acute Assessment and Plan: Presumably related to PE though it is not very large. Wean oxygen as tolerated. (5) Renal failure: Code(s): N19 - Unspecified kidney failure Status: Acute Assessment and Plan: Monitor (6) Hyponatremia: Code(s): E87.1 - Hypo-osmolality and hyponatremia Status: Acute Assessment and Plan: Probably due to extra volume. Monitor while diuresing. (7) Macrocytic anemia: Code(s): D53.9 - Nutritional anemia, unspecified Status: Acute Assessment and Plan: Check iron studies as well as B12 and folates. (8) Hypertension: Code(s): I10 - Essential (primary) hypertension Status: Acute Assessment and Plan: Blood pressures were reviewed and they are stable. Continue antihypertensives and monitor. (9) Chronic obstructive pulmonary disease: Code(s): J44.9 - Chronic obstructive pulmonary disease, unspecified Status: Acute Assessment and Plan: No acute issues. Continue inhalers. (10) Insulin dependent diabetes mellitus: Status: Acute Assessment and Plan: Continue basal insulin. Initiate sliding scale insulin, Accu-Cheks, and hypoglycemic protocol. DS: Summary Hospital Course Hospital Course: Patient was admitted for pulmonary embolism. Patient was previously on Eliquis as she had failed her Eliquis. She will be discharged on Coumadin. INR indicated discharge 2.6. Facility will monitor Coumadin and adjust dose accordingly. Time Spent with Patient Time attestation: Total time spent providing and/or coordinating discharge services: Exam Narrative: General: Well-developed female sitting up in bed in no acute distress. Weight: 70.45 kg. BMI: 25.1. HEENT: PERRL, EOMI. Conjunctivae anicteric. Oral mucosa moist. Neck: Supple. No jugular venous distention. Respiratory: Respirations are nonlabored and she is speaking in full sentences. Lungs are clear to auscultation. Cardiovascular: Regular rate and rhythm with S1-S2. Gastrointestinal: Abdomen is soft, nontender, and nondistended with positive bowel sounds. Skin: Warm and dry. Generalized pallor. Bruising on the knees and anterior shins which she states is from hitting them on the transfer device when she is getting up. Extremities: No cyanosis or clubbing. 3+ annabelle ankle edema up to the knees. Equivocal Melissa sign bilaterally. Neurological: Alert and oriented Cranial nerves 2-12 are grossly intact. Speech is clear. No facial asymmetry. Good strength in the upper extremities. Bilateral hip flexors are weak, she could barely raise her right leg off of the bed and could only raise her left leg and inter so off of the bed. Is not a new finding for her as detailed in HPI. She is neurovascularly intact. Psychiatric: Pleasant and cooperative with normal mood and affect. DS: Data Data Completed and Pending Labs on day of discharge: Labs from last 24 hours 02/01/22 02/01/22 01/31/22 11:42 07:31 21:15 PT 26.8 H D INR 2.6 APTT POC Capillary Glucose 163 H 127 H 01/31/22 01/31/22 01/31/22 21:15 20:30 16:36 PT INR APTT 73.6 H POC Capillary Gl
[2022-02-01] MEDS: SILVERGEL (ELTA) 45 ML 1 APPLIC TOPICAL (12:40)
[2022-02-01] MEDS: HYDROcodone/acetaminophen (*CRX) 5-325 MG TABLET 1 TAB PO (15:30)
[2022-02-01] MEDS: ONDANSETRON HCL ODT 4 MG TABLET PO (15:30)
--- NOTE | 2022-02-01 15:34 | PM.IMPN ---
Progress Note: A&P Assessment and Plan (1) Pulmonary embolism on right: Code(s): I26.99 - Other pulmonary embolism without acute cor pulmonale Status: Acute Assessment and Plan: INR will need to be monitored as an outpatient. The facility can do this. coumadin on dc as patient failed eliquis (2) Lower extremity edema: Code(s): R60.0 - Localized edema Status: Acute Assessment and Plan: Improved. (3) Heart failure of unknown etiology: Code(s): I50.9 - Heart failure, unspecified Status: Acute Assessment and Plan: Monitor (4) Hypoxia: Code(s): R09.02 - Hypoxemia Status: Acute Assessment and Plan: Presumably related to PE though it is not very large. Wean oxygen as tolerated. (5) Renal failure: Code(s): N19 - Unspecified kidney failure Status: Acute Assessment and Plan: Monitor (6) Hyponatremia: Code(s): E87.1 - Hypo-osmolality and hyponatremia Status: Acute Assessment and Plan: Probably due to extra volume. Monitor while diuresing. (7) Macrocytic anemia: Code(s): D53.9 - Nutritional anemia, unspecified Status: Acute Assessment and Plan: Check iron studies as well as B12 and folates. (8) Hypertension: Code(s): I10 - Essential (primary) hypertension Status: Acute Assessment and Plan: Blood pressures were reviewed and they are stable. Continue antihypertensives and monitor. (9) Chronic obstructive pulmonary disease: Code(s): J44.9 - Chronic obstructive pulmonary disease, unspecified Status: Acute Assessment and Plan: No acute issues. Continue inhalers. (10) Insulin dependent diabetes mellitus: Status: Acute Assessment and Plan: Continue basal insulin. Initiate sliding scale insulin, Accu-Cheks, and hypoglycemic protocol. (11) Abdominal pain: Code(s): R10.9 - Unspecified abdominal pain Status: Acute Assessment and Plan: will hold dc ct abdomen and pelvis prior to dc ppi Subjective Date/time seen: 02/01/22 15:34 was doing well this am now having abdominal pain was able to tolerate eating this am wo issue Exam Narrative: General: Well-developed female sitting up in bed in no acute distress. Weight: 70.45 kg. BMI: 25.1. HEENT: PERRL, EOMI. Conjunctivae anicteric. Oral mucosa moist. Neck: Supple. No jugular venous distention. Respiratory: Respirations are nonlabored and she is speaking in full sentences. Lungs are clear to auscultation. Cardiovascular: Regular rate and rhythm with S1-S2. Gastrointestinal: Abdomen is soft, nontender, and nondistended with positive bowel sounds. Skin: Warm and dry. Generalized pallor. Bruising on the knees and anterior shins which she states is from hitting them on the transfer device when she is getting up. Extremities: No cyanosis or clubbing. 3+ annabelle ankle edema up to the knees. Equivocal Melissa sign bilaterally. Neurological: Alert and oriented Cranial nerves 2-12 are grossly intact. Speech is clear. No facial asymmetry. Good strength in the upper extremities. Bilateral hip flexors are weak, she could barely raise her right leg off of the bed and could only raise her left leg and inter so off of the bed. Is not a new finding for her as detailed in HPI. She is neurovascularly intact. Psychiatric: Pleasant and cooperative with normal mood and affect. Objective Data Vital Signs Vital Signs: Vital Signs - 24 hr 01/31/22 18:00 01/31/22 16:00 01/31/22 20:32 Temperature 97.3 F L Pulse Rate 75 82 76 Respiratory Rate 18 Blood Pressure 121/56 L Pulse Oximetry 92 Oxygen Delivery Oxygen Flow Rate 02/01/22 04:44 01/31/22 20:00 02/01/22 00:00 Temperature 97.3 F L Pulse Rate 76 76 71 Respiratory Rate 18 Blood Pressure 122/54 L Pulse Oximetry 92 Oxygen Delivery Oxygen Flow Rate 02/01/22
[2022-02-01 16:31] LABS: Hematocrit 23.8 % (37.0-47.0); Hemoglobin 7.7 g/dL (12.0-15.0); Mean Corpuscular HGB Conc 32.4 g/dl (32-36); Mean Corpuscular Hemoglobin 35.6 pg (26-34); Mean Corpuscular Volume 110.2 fl (80-100); Mean Platelet Volume 8.9 fl (7.4-10.4); Platelet Count Result 236 k/mm3 (150-375); Red Blood Count 2.16 M/mm3 (4.2-5.4); Red Cell Distribution Width 16.2 % (11.5-14.5); White Blood Count 6.6 K/mm3 (4.5-10.0)
[2022-02-01 16:47] LABS: Alanine Aminotransferase 15 U/L (6-35); Albumin Level 2.6 g/dL (3.5-5.1); Alkaline Phosphatase 92 U/L (38-126); Anion Gap 5 mmol/L (8-16); Aspartate Amino Transferase 19 U/L (14-36); Bilirubin,Total 0.3 mg/dL (0.2-1.3); Blood Urea Nitrogen 41 mg/dL (7-17); Calcium 8.3 mg/dL (8.4-10.2); Carbon Dioxide 29 mmol/L (22-30); Chloride 96 mmol/L (98-107); Estimated CRCL calculation 27 ml/min; Estimated Glomerular Filt Rate 34; Glucose 171 mg/dL (65-110); Lipase 24 U/L (23-300); Potassium 4.8 mmol/L (3.4-5.0); Sodium 130 mmol/L (137-145)
[2022-02-01 17:30] LABS: Glucose Point of Care 159 mg/dl (65-105)
[2022-02-01] MEDS: WARFARIN (*PBKC) 2.5 MG TABLET PO (18:05)
[2022-02-01 20:59] LABS: Glucose Point of Care 141 mg/dl (65-105)
[2022-02-01] MEDS: ALPRAZolam (*CRX) 0.5 MG TABLET PO (21:02)
[2022-02-01] MEDS: INSULIN GLARGINE (*BKC) 100 UNITS/ML 22 UNITS SUB-Q (21:04)
[2022-02-02] VITALS (12 sets, daily range): BP systolic 100–111; BP diastolic 50–58; PULSE 72–84; RESP 16–20; TEMP 35.7–36.5; O2SAT 92–96
[2022-02-02 05:46] LABS: Hematocrit 25.3 % (37.0-47.0); Hemoglobin 8.2 g/dL (12.0-15.0); Mean Corpuscular HGB Conc 32.4 g/dl (32-36); Mean Corpuscular Hemoglobin 35.3 pg (26-34); Mean Corpuscular Volume 109.1 fl (80-100); Mean Platelet Volume 8.9 fl (7.4-10.4); Platelet Count Result 248 k/mm3 (150-375); Red Blood Count 2.32 M/mm3 (4.2-5.4); Red Cell Distribution Width 16.3 % (11.5-14.5); White Blood Count 6.9 K/mm3 (4.5-10.0)
[2022-02-02 06:04] LABS: Anion Gap 2 mmol/L (8-16); Blood Urea Nitrogen 41 mg/dL (7-17); Calcium 8.5 mg/dL (8.4-10.2); Carbon Dioxide 33 mmol/L (22-30); Chloride 96 mmol/L (98-107); Estimated CRCL calculation 24 ml/min; Estimated Glomerular Filt Rate 29; Glucose 104 mg/dL (65-110); Potassium 4.3 mmol/L (3.4-5.0); Prothrombin Time 46.4 Seconds (11.1-14.7); Sodium 131 mmol/L (137-145)
[2022-02-02 08:12] LABS: Glucose Point of Care 106 mg/dl (65-105)
[2022-02-02 08:22] LABS: INR 5.2
[2022-02-02] MEDS: hydrALAZINE 10 MG TABLET PO ×3 (10:02→16:29)
[2022-02-02] MEDS: HYDROcodone/acetaminophen (*CRX) 5-325 MG TABLET 1 TAB PO (10:02)
[2022-02-02] MEDS: ESTROGENS, CONJUGATED 0.625 MG TABLET 1.25 MG PO (10:02)
[2022-02-02] MEDS: carvediloL 25 MG TABLET PO ×2 (10:02→16:29)
[2022-02-02] MEDS: FUROSEMIDE 20 MG TABLET 60 MG PO (10:02)
[2022-02-02] MEDS: PANTOPRAZOLE 40 MG TABLET PO (10:03)
[2022-02-02] MEDS: amLODIPine BESYLATE 5 MG TABLET PO (10:03)
[2022-02-02] MEDS: MIRABEGRON 50 MG ER TABLET PO (10:03)
[2022-02-02] MEDS: ASPIRIN 81 MG ENTERIC TABLET PO (10:03)
[2022-02-02] MEDS: CALCIUM CARBONATE (OSCAL) 500 MG TABLET PO (10:03)
[2022-02-02] MEDS: LOSARTAN POTASSIUM 50 MG TABLET PO (10:03)
[2022-02-02] MEDS: FLUTICASONE PROPIONATE 0.05% NA SPR 16 GM BTL (*BKC) 2 SPRAY NASAL (10:04)
[2022-02-02] MEDS: SILVERGEL (ELTA) 45 ML 1 APPLIC TOPICAL (10:04)
[2022-02-02] MEDS: UMECLIDINIUM/VILANTEROL 62.5-25 MCG ELLIPTA 1 PUFF INHALATION (10:28)
[2022-02-02 10:40] LABS: Appearance Urine Cloudy (Clear); Bilirubin Urine Negative (Negative); Blood Urine Negative (Negative); Color Urine Yellow (Yellow); Glucose Urine UA Negative (Negative); Ketones Urine Negative (Negative); Leukocyte Esterase Ur 3+ LEU/UL (Negative); Nitrate Urine Negative (Negative); Protein Urine Negative (Negative); Specific Grav Ur 1.015 (1.001-1.035); Urobilinogen Urine 0.2 mg/dL (<2.0)
[2022-02-02 10:40] LABS: Osmolality, Urine 263 mOsm/kg (50-1200)
[2022-02-02 10:44] LABS: Bacteria Urine Trace /hpf; Mucus Urine Rare /lpf; Squamous Epithelial Cell Urine Occasional /hpf (Few); WBC Urine 51-75 /hpf
[2022-02-02 10:56] LABS: Add Urine Microscopic? YES
--- NOTE | 2022-02-02 11:08 | PCPTNOTE ---
Attempted to see patient for PT at this time, however patient's family member in room and declined therapy for patient. Family member reporting patient has been out of it and feels patient won't be able to participate at the moment.
[2022-02-02 12:22] LABS: Glucose Point of Care 132 mg/dl (65-105)
--- NOTE | 2022-02-02 12:22 | PM.IMPN ---
Progress Note: A&P Assessment and Plan (1) Pulmonary embolism on right: Code(s): I26.99 - Other pulmonary embolism without acute cor pulmonale Status: Acute Assessment and Plan: INR is elevated today. Will hold Coumadin dose. Resume once INR at range of 2-3. Once in range patient can be discharged. (2) Lower extremity edema: Code(s): R60.0 - Localized edema Status: Acute Assessment and Plan: Improved. (3) Heart failure of unknown etiology: Code(s): I50.9 - Heart failure, unspecified Status: Acute Assessment and Plan: Monitor, appears compensated (4) Hypoxia: Code(s): R09.02 - Hypoxemia Status: Acute Assessment and Plan: Presumably related to PE though it is not very large. Wean oxygen as tolerated. (5) Renal failure: Code(s): N19 - Unspecified kidney failure Status: Acute Assessment and Plan: Monitor (6) Hyponatremia: Code(s): E87.1 - Hypo-osmolality and hyponatremia Status: Acute Assessment and Plan: Monitor labs. Sodium is at baseline 131 (7) Macrocytic anemia: Code(s): D53.9 - Nutritional anemia, unspecified Status: Acute Assessment and Plan: Monitor (8) Hypertension: Code(s): I10 - Essential (primary) hypertension Status: Acute Assessment and Plan: Blood pressures were reviewed and they are stable. Continue antihypertensives and monitor. (9) Chronic obstructive pulmonary disease: Code(s): J44.9 - Chronic obstructive pulmonary disease, unspecified Status: Acute Assessment and Plan: No acute issues. Continue inhalers. (10) Insulin dependent diabetes mellitus: Status: Acute Assessment and Plan: Continue basal insulin. Initiate sliding scale insulin, Accu-Cheks, and hypoglycemic protocol. (11) Abdominal pain: Code(s): R10.9 - Unspecified abdominal pain Status: Acute Assessment and Plan: Improved today. CT abdomen is negative. Subjective Date/time seen: 02/02/22 12:22 Doing okay. Reports abdominal pain better. Eating. Exam Narrative: General: Well-developed female sitting up in bed in no acute distress. Weight: 70.45 kg. BMI: 25.1. HEENT: PERRL, EOMI. Conjunctivae anicteric. Oral mucosa moist. Neck: Supple. No jugular venous distention. Respiratory: Respirations are nonlabored and she is speaking in full sentences. Lungs are clear to auscultation. Cardiovascular: Regular rate and rhythm with S1-S2. Gastrointestinal: Abdomen is soft, nontender, and nondistended with positive bowel sounds. Skin: Warm and dry. Generalized pallor. Bruising on the knees and anterior shins which she states is from hitting them on the transfer device when she is getting up. Extremities: No cyanosis or clubbing. 3+ annabelle ankle edema up to the knees. Equivocal Melissa sign bilaterally. Neurological: Alert and oriented Cranial nerves 2-12 are grossly intact. Speech is clear. No facial asymmetry. Good strength in the upper extremities. Bilateral hip flexors are weak, she could barely raise her right leg off of the bed and could only raise her left leg and inter so off of the bed. Is not a new finding for her as detailed in HPI. She is neurovascularly intact. Psychiatric: Pleasant and cooperative with normal mood and affect. Objective Data Vital Signs Vital Signs: Vital Signs - 24 hr 02/01/22 15:09 02/01/22 18:06 02/01/22 16:00 Temperature 98.3 F Pulse Rate 83 83 80 Respiratory Rate 16 Blood Pressure 98/50 L Pulse Oximetry 91 Oxygen Delivery 02/01/22 19:31 02/01/22 20:00 02/01/22 20:00 Temperature 98.1 F Pulse Rate 81 78 78 Respiratory Rate 20 20 Blood Pressure 102/51 L Pulse Oximetry 90 90 Oxygen Delivery Room Air 02/02/22 00:00 02/02/22 04:00 02/02/22 05:09 Temperature 97.7 F Pulse Rate 79 80 81 Respiratory Rate 20 Blood Press
--- NOTE | 2022-02-02 14:01 | PCPTNOTE ---
Attempted to see patient for PT at this time, however patient declined with patient's family member in room.
[2022-02-02 16:32] LABS: Glucose Point of Care 121 mg/dl (65-105)
[2022-02-02] MEDS: ALPRAZolam (*CRX) 0.5 MG TABLET PO (20:36)
[2022-02-02] MEDS: INSULIN GLARGINE (*BKC) 100 UNITS/ML 22 UNITS SUB-Q (20:41)
[2022-02-02] MEDS: MELATONIN 5 MG TABLET 10 MG PO (20:41)
[2022-02-02 20:55] LABS: Glucose Point of Care 154 mg/dl (65-105)
[2022-02-02 21:17] LABS: Methylmalonic Acid 467 nmol/L (87-318)
[2022-02-03] VITALS (11 sets, daily range): BP systolic 109–119; BP diastolic 42–58; PULSE 76–83; RESP 16–20; TEMP 36.4–37.2; O2SAT 93–95
[2022-02-03 06:36] LABS: INR 4.2; Prothrombin Time 39.3 Seconds (11.1-14.7)
[2022-02-03 08:27] LABS: Glucose Point of Care 93 mg/dl (65-105)
[2022-02-03] MEDS: MIRABEGRON 50 MG ER TABLET PO (08:31)
[2022-02-03] MEDS: PANTOPRAZOLE 40 MG TABLET PO (08:31)
[2022-02-03] MEDS: FLUTICASONE PROPIONATE 0.05% NA SPR 16 GM BTL (*BKC) 2 SPRAY NASAL (08:31)
[2022-02-03] MEDS: ESTROGENS, CONJUGATED 0.625 MG TABLET 1.25 MG PO (08:31)
[2022-02-03] MEDS: LOSARTAN POTASSIUM 50 MG TABLET PO (08:31)
[2022-02-03] MEDS: hydrALAZINE 10 MG TABLET PO (08:31)
[2022-02-03] MEDS: amLODIPine BESYLATE 5 MG TABLET PO (08:32)
[2022-02-03] MEDS: FUROSEMIDE 20 MG TABLET 60 MG PO (08:32)
[2022-02-03] MEDS: ASPIRIN 81 MG ENTERIC TABLET PO (08:32)
[2022-02-03] MEDS: CALCIUM CARBONATE (OSCAL) 500 MG TABLET PO (08:32)
[2022-02-03] MEDS: carvediloL 25 MG TABLET PO (08:32)
[2022-02-03] MEDS: SILVERGEL (ELTA) 45 ML 1 APPLIC TOPICAL (08:40)
[2022-02-03] MEDS: UMECLIDINIUM/VILANTEROL 62.5-25 MCG ELLIPTA 1 PUFF INHALATION (09:27)
--- NOTE | 2022-02-03 11:05 | PCPTNOTE ---
Patient refused treatment this session due to pain at a 10/10. Pt reported she does not feel she can work with therapy today due to pain, and reported pain a 10/10. RN aware.
[2022-02-03 12:52] LABS: Glucose Point of Care 124 mg/dl (65-105)
[2022-02-03] MEDS: PSYLLIUM POWDER PACKET 1 PACKET PO (13:02)
[2022-02-03] MEDS: ACETAMINOPHEN ELIXIR 325 MG/10.15 ML UDC 650 MG PO (15:17)
[2022-02-03 17:42] LABS: Glucose Point of Care 145 mg/dl (65-105)
[2022-02-03] MEDS: ONDANSETRON HCL ODT 4 MG TABLET PO (18:02)
[2022-02-03] MEDS: HYDROcodone/acetaminophen (*CRX) 5-325 MG TABLET 1 TAB PO (18:02)
--- NOTE | 2022-02-03 18:36 | PM.IMPN ---
Progress Note: A&P Assessment and Plan (1) Pulmonary embolism on right: Code(s): I26.99 - Other pulmonary embolism without acute cor pulmonale Status: Acute Assessment and Plan: INR 4.2 today, monitor, restart Coumadin when appropriate (2) Lower extremity edema: Code(s): R60.0 - Localized edema Status: Acute Assessment and Plan: Improved. (3) Heart failure of unknown etiology: Code(s): I50.9 - Heart failure, unspecified Status: Acute Assessment and Plan: Monitor, appears compensated (4) Hypoxia: Code(s): R09.02 - Hypoxemia Status: Acute Assessment and Plan: Presumably related to PE though it is not very large. Wean oxygen as tolerated. (5) Renal failure: Code(s): N19 - Unspecified kidney failure Status: Acute Assessment and Plan: Monitor (6) Hyponatremia: Code(s): E87.1 - Hypo-osmolality and hyponatremia Status: Acute Assessment and Plan: Monitor labs. Sodium is at baseline 131 (7) Macrocytic anemia: Code(s): D53.9 - Nutritional anemia, unspecified Status: Acute Assessment and Plan: Monitor (8) Hypertension: Code(s): I10 - Essential (primary) hypertension Status: Acute Assessment and Plan: Blood pressures were reviewed and they are stable. Continue antihypertensives and monitor. (9) Chronic obstructive pulmonary disease: Code(s): J44.9 - Chronic obstructive pulmonary disease, unspecified Status: Acute Assessment and Plan: No acute issues. Continue inhalers. (10) Insulin dependent diabetes mellitus: Status: Acute Assessment and Plan: Continue basal insulin. Initiate sliding scale insulin, Accu-Cheks, and hypoglycemic protocol. (11) Abdominal pain: Code(s): R10.9 - Unspecified abdominal pain Status: Acute Assessment and Plan: Improved today. CT abdomen is negative. Subjective Date/time seen: 02/03/22 18:36 Interval history: Patient appears somewhat uncomfortable, answers questions appropriately and follows commands. No overnight events noted. No chest pain or shortness of breath. No nausea, vomiting or diarrhea. No fevers or chills. She is complaining of significant malaise and weakness. Review of Systems Review of Systems: 12 point review of systems was assessed and was negative except as noted in the HPI Exam Narrative: General: No acute distress, alert and oriented per baseline, somnolent HEENT: Atraumatic, normocephalic, mucous membranes moist CV: Regular rate and rhythm, S1, S2 Lungs: Clear to auscultation bilaterally, no rales or crackles noted, no wheezes, good air entry Abdomen: Soft, nontender, nondistended Extremities: Normal to inspection Skin: No rashes noted, no lesions or wounds seen Psych: Euthymic, normal affect Objective Data Vital Signs Vital Signs: Vital Signs - 24 hr 02/02/22 19:31 02/02/22 20:00 02/02/22 20:00 Temperature 97.4 F L Pulse Rate 76 75 75 Respiratory Rate 18 18 Blood Pressure 107/50 L Pulse Oximetry 93 93 Oxygen Delivery Room Air 02/03/22 00:00 02/03/22 04:00 02/03/22 05:56 Temperature 97.6 F Pulse Rate 78 76 77 Respiratory Rate 20 Blood Pressure 119/58 L Pulse Oximetry 95 Oxygen Delivery 02/02/22 21:30 02/03/22 08:32 02/03/22 09:27 Temperature Pulse Rate 80 Respiratory Rate Blood Pressure Pulse Oximetry 94 95 Oxygen Delivery Room Air Room Air 02/03/22 08:00 02/03/22 14:00 02/03/22 12:00 Temperature 97.6 F Pulse Rate 81 83 79 Respiratory Rate 16 Blood Pressure 109/42 L Pulse Oximetry 93 Oxygen Delivery 02/03/22 16:00 Temperature Pulse Rate 80 Respiratory Rate Blood Pressure Pulse Oximetry Oxygen Delivery Intake/Output Intake/Output: Intake & Output 01/31/22 02/01/22 02/02/22 02/03/22 23:59 23:59 23:59 2
[2022-02-03] MEDS: INSULIN GLARGINE (*BKC) 100 UNITS/ML 22 UNITS SUB-Q (20:37)
[2022-02-03 20:40] LABS: Glucose Point of Care 208 mg/dl (65-105)
[2022-02-03] MEDS: ALPRAZolam (*CRX) 0.5 MG TABLET PO (20:40)
[2022-02-03] MEDS: MELATONIN 5 MG TABLET 10 MG PO (20:44)
[2022-02-04] VITALS (16 sets, daily range): BP systolic 94–141; BP diastolic 43–73; PULSE 75–110; RESP 16–22; TEMP 35.7–37.1; O2SAT 86–97
--- NOTE | 2022-02-04 | ECHO_ITS ---
Patient Info Name: Jillian Britt Age: 76 years : 1945 Gender: Female Ht: 66 in Wt: 136 lbs BSA: 1.70 m2 HR: 76 bpm BP: 141 / 73 mmHg Heart Rhythm: Sinus Rhythm Technical Quality: Fair Exam Date: 02/04/2022 10:57 AM Exam Location: [facility] Pulmonary Exam Room: 345 Patient Status: Inpatient Admit Date: 01/29/2022 Staff Ordering Physician: Stephanie Morris DO Transfer And Line Up Worker: Dayana Torres RDCS Attending Provider: Stephanie Morris DO Referring Physician: Alexandra DAMIAN; Exam Type: CA echo doppler color flow Study Info Indications - chest pain sob pulm embolism Complete two-dimensional, color flow and Doppler transthoracic echocardiogram is performed. Summary 1. Complete two-dimensional, color flow and Doppler transthoracic echocardiogram is performed. 2. Left ventricular chamber dimension is normal. 3. Left ventricular systolic function is hyperdynamic, estimated at >70%. 4. There is no increased left ventricular wall thickness. 5. The left ventricular diastolic function is grade I diastolic dysfunction. 6. Technically difficult study with limited views. 7. There is trace tricuspid valve regurgitation. 8. Mild pulmonary hypertension, estimated pulmonary arterial systolic pressure is 40 mmHg. 9. Normal inferior vena cava with >50% collapse upon inspiration consistent with normal right atrial pressure, 5 mmHg. Left Ventricle Left ventricular chamber dimension is normal. Left ventricular systolic function is hyperdynamic, estimated at >70%. There is no increased left ventricular wall thickness. The left ventricular diastolic function is grade I diastolic dysfunction. Technically difficult study with limited views. Right Ventricle Right ventricular chamber dimension is normal. Right ventricular systolic function is normal. Left Atria Left atrial chamber dimension is normal. Right Atria Right atrial chamber dimension is normal. Aortic Valve The aortic valve is not well visualized. There is no aortic valve stenosis. There is no aortic valve regurgitation. Pulmonic Valve The pulmonic valve is not well visualized. Mitral Valve The mitral valve has normal leaflets. There is trace mitral valve regurgitation. The mitral valve annulus is mildly calcified. Tricuspid Valve The tricuspid valve leaflets are normal. There is trace tricuspid valve regurgitation. Mild pulmonary hypertension, estimated pulmonary arterial systolic pressure is 40 mmHg. Pericardium/Pleural The pericardium appears epicardial fat pad. There is no pericardial effusion. Inferior Vena Cava Normal inferior vena cava with >50% collapse upon inspiration consistent with normal right atrial pressure, 5 mmHg. Aorta The aortic root size at the sinus of Valsalva is normal. There is mild aortic atherosclerosis. Left Ventricular Outflow Tract Name Value Normal LVOT 2D LVOT Diameter 2.0 cm LVOT Doppler LVOT Peak Gradient 5 mmHg LVOT Mean Gradient 2 mmHg LVOT VTI 19 cm LVOT VTI/AV VTI Ratio
[2022-02-04] MEDS: LOSARTAN POTASSIUM 50 MG TABLET PO (08:31)
[2022-02-04] MEDS: ESTROGENS, CONJUGATED 0.625 MG TABLET 1.25 MG PO (08:31)
[2022-02-04] MEDS: PANTOPRAZOLE 40 MG TABLET PO (08:31)
[2022-02-04] MEDS: FUROSEMIDE 20 MG TABLET 60 MG PO (08:32)
[2022-02-04] MEDS: ERGOCALCIFEROL 50,000 UNIT CAPSULE 50000 UNITS PO (08:32)
[2022-02-04] MEDS: MIRABEGRON 50 MG ER TABLET PO (08:32)
[2022-02-04] MEDS: PSYLLIUM POWDER PACKET 1 PACKET PO (08:32)
[2022-02-04] MEDS: carvediloL 25 MG TABLET PO ×2 (08:32→18:05)
[2022-02-04] MEDS: ASPIRIN 81 MG ENTERIC TABLET PO (08:32)
[2022-02-04] MEDS: CALCIUM CARBONATE (OSCAL) 500 MG TABLET PO (08:32)
[2022-02-04] MEDS: hydrALAZINE 10 MG TABLET PO (08:33)
[2022-02-04] MEDS: amLODIPine BESYLATE 5 MG TABLET PO (08:33)
[2022-02-04 08:35] LABS: Glucose Point of Care 137 mg/dl (65-105)
[2022-02-04] MEDS: FLUTICASONE PROPIONATE 0.05% NA SPR 16 GM BTL (*BKC) 2 SPRAY NASAL (08:37)
[2022-02-04] MEDS: SILVERGEL (ELTA) 45 ML 1 APPLIC TOPICAL (08:38)
[2022-02-04] MEDS: LIDOCAINE 5% PATCH 1 PATCH TRANSDERM (08:39)
[2022-02-04] MEDS: UMECLIDINIUM/VILANTEROL 62.5-25 MCG ELLIPTA 1 PUFF INHALATION (09:11)
[2022-02-04 09:29] LABS: Lactic Acid Reflex 2.1 mmol/L (0.7-2.0)
[2022-02-04 09:45] LABS: CRP 8.4 mg/dL (<1.0); Creatine Kinase < 20 U/L (30-135)
[2022-02-04 10:14] LABS: Troponin I < 0.012 ng/mL (0.000-0.034)
[2022-02-04 10:42] LABS: Procalcitonin 0.2 ng/mL
--- NOTE | 2022-02-04 11:44 | PCPTNOTE ---
Attempted to see patient for PT 02/04/2022, per RN advised not to see patient. RN reported patient very sick and out of it today.
[2022-02-04 12:12] LABS: Reflex Lactic Acid Yes or No Add Lactic
--- NOTE | 2022-02-04 12:20 | PCOTNOTE ---
Attempted to see patient this pm, however per PT assistant warehouse manager, RN advised not to see patient this date.
[2022-02-04 12:24] LABS: Glucose Point of Care 217 mg/dl (65-105)
[2022-02-04] MEDS: SODIUM CHLORIDE 0.9% IV 1,000 ML 75 ML IV CONT (12:34)
[2022-02-04 12:52] LABS: Lactic Acid 3.5 mmol/L (0.7-2.0)
--- NOTE | 2022-02-04 15:03 | PM.CNGS ---
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 This was incidentally found on her CTA of the chest on admission. 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 The patient continues to have abdominal pain, but this sounds more intermittent. Her history does sound like she could have chronic intermittently postprandial abdominal pain that could be related to the median arcuate ligament syndrome. I reviewed the CT scan abdomen/pelvis with Dr. Welch, our Radiologist, and he does not see any abnormalities of the bowel that would suggest ischemia. He recommended getting a CTA of the abdomen to further evaluate the degree of stenosis. She is unable to have an MRI due to her nerve stimulator. If there is severe stenosis and surgical intervention needs to be considered, then she would require transfer to a tertiary care facility as we do not perform surgery for this at our facility. She would likely need a facility where a vascular surgeon is available and could evaluate the patient. She has seen vascular at [facility] and this is where all of her specialists are located, so this would be the most ideal place to start. Given her multiple co-morbidities and anticoagulation for the PE with a supratherapeutic INR, she is a high risk surgical candidate. If the CTA of the abdomen does not show severe stenosis or any evidence of bowel ischemia, then this was likely a chronic incidental finding and would not account for a rising lactate. Will make her NPO and await CTA results. (2) Abdominal pain: Code(s): R10.9 - Unspecified abdominal pain Status: Acute Assessment and Plan: Her family and the patient report that she deals with abdominal pain chronically, although it has become more severe and more frequent over the past few days. The patient does feel that she notices abdominal pain after eating. This could be related to compression of the celiac artery due to MAL syndrome, but typically this is more of a chronic intermittent issue that does not cause complete occlusion of the artery. There were no other acute findings on the CT scan abdomen/pelvis from 3 days ago that would account for her abdominal pain. She is not complaining of abdominal pain at this time and has not been eating. She is diffusely tender on exam, but has no peritoneal signs. This seems unlikely to be related to bowel ischemia from MAL syndrome, but we will get a CTA of the abdomen/pelvis to further evaluate. This would also help rule out other causes of bowel ischemia like SMA syndrome. (3) Elevated lactic acid level: Code(s): R79.89 - Other specified abnormal findings of blood chemistry Status: Acute Assessment and Plan: Lactic acid first was checked today due to her abdominal pain. Lactic was 2.1 and up to 3.5. Will get CTA abdomen/pelvis to evaluate the degree of the celiac artery stenosis. See plan above. (4) Supratherapeutic INR: Code(s): R79.1 - Abnormal coagulation profile Status: Acute Assessment and Plan: INR up to 5.2 and warfarin has been held since 02/01/22. INR 4.2 yesterday, will repeat coags today to re-evaluate. Monitor labs. Warfarin management per Hospitalist. (5) Altered mental state: Code(s): R41.82 - Altered mental status, unspecified Status: Acute Assessment and Plan: Patient has become increasingly lethargic over the past few days. No focal deficits. (6) Pulmonary embolism on right: Code(s): I26.99 - Other pulmonary embolism without acute cor pulmonale Status: Acute Assessment and Plan: This is the reason for her hospitalization. She has had multiple PE's in
--- NOTE | 2022-02-04 16:25 | PM.IMPN ---
Progress Note: A&P Assessment and Plan (1) Pulmonary embolism on right: Code(s): I26.99 - Other pulmonary embolism without acute cor pulmonale Status: Acute Assessment and Plan: INR 4.2 yesterday, monitor, restart Coumadin when appropriate, INR pending for today (2) Lower extremity edema: Code(s): R60.0 - Localized edema Status: Acute Assessment and Plan: Improved. (3) Heart failure of unknown etiology: Code(s): I50.9 - Heart failure, unspecified Status: Acute Assessment and Plan: Monitor, appears compensated (4) Hypoxia: Code(s): R09.02 - Hypoxemia Status: Acute Assessment and Plan: Presumably related to PE though it is not very large. Wean oxygen as tolerated. current we receiving 2 L nasal cannula intermittently with exertion, home O2 eval pending (5) Renal failure: Code(s): N19 - Unspecified kidney failure Status: Acute Assessment and Plan: Monitor (6) Hyponatremia: Code(s): E87.1 - Hypo-osmolality and hyponatremia Status: Acute Assessment and Plan: Monitor labs. Sodium is at baseline 131 (7) Macrocytic anemia: Code(s): D53.9 - Nutritional anemia, unspecified Status: Acute Assessment and Plan: Monitor (8) Hypertension: Code(s): I10 - Essential (primary) hypertension Status: Acute Assessment and Plan: Blood pressures were reviewed and they are stable. Continue antihypertensives and monitor. (9) Chronic obstructive pulmonary disease: Code(s): J44.9 - Chronic obstructive pulmonary disease, unspecified Status: Acute Assessment and Plan: No acute issues. Continue inhalers. (10) Insulin dependent diabetes mellitus: Status: Acute Assessment and Plan: Continue basal insulin. Initiate sliding scale insulin, Accu-Cheks, and hypoglycemic protocol. (11) Abdominal pain: Code(s): R10.9 - Unspecified abdominal pain Status: Acute Assessment and Plan: Improved today. CT abdomen is negative. Subjective Date/time seen: 02/04/22 16:25 Interval history: No overnight events noted. No chest pain or shortness of breath. No nausea, vomiting or diarrhea. No fevers or chills. Review of Systems Review of Systems: 12 point review of systems was assessed and was negative except as noted in the HPI Exam Narrative: General: No acute distress, alert and oriented per baseline, somnolent HEENT: Atraumatic, normocephalic, mucous membranes moist CV: Regular rate and rhythm, S1, S2 Lungs: Clear to auscultation bilaterally, no rales or crackles noted, no wheezes, good air entry Abdomen: Soft, nontender, nondistended Extremities: Normal to inspection Skin: No rashes noted, no lesions or wounds seen Psych: Euthymic, normal affect Objective Data Vital Signs Vital Signs: Vital Signs - 24 hr 02/03/22 20:00 02/03/22 22:00 02/04/22 00:00 Temperature 98.9 F Pulse Rate 77 81 75 Respiratory Rate 16 Blood Pressure 112/51 L Pulse Oximetry 94 Oxygen Delivery Oxygen Flow Rate 02/04/22 04:00 02/04/22 05:58 02/04/22 08:29 Temperature 98.7 F 97.5 F L Pulse Rate 77 82 110 H Respiratory Rate 18 22 H Blood Pressure 110/51 L 141/73 H Pulse Oximetry 97 91 Oxygen Delivery Oxygen Flow Rate 02/04/22 08:32 02/04/22 08:00 02/04/22 12:00 Temperature Pulse Rate 110 H 105 H 86 Respiratory Rate Blood Pressure Pulse Oximetry Oxygen Delivery Oxygen Flow Rate 02/04/22 08:00 02/04/22 13:00 02/04/22 08:00 Temperature 96.7 F L Pulse Rate 84 Respiratory Rate 18 Blood Pressure 94/56 L Pulse Oximetry 86 L 95 91 Oxygen Delivery Room Air Nasal Cannula Oxygen Flow Rate 2 Intake/Output Intake/Output: Intake & Output 02/01/22 02/02/22 02/03/22 02/04/22 23:59 23:59 23:59 23:59 Intake Total 650 716 [id number] 270 Outp
[2022-02-04 16:28] LABS: INR 2.7; Prothrombin Time 27.5 Seconds (11.1-14.7)
[2022-02-04 18:01] LABS: Glucose Point of Care 113 mg/dl (65-105)
[2022-02-04] MEDS: ACETAMINOPHEN ELIXIR 325 MG/10.15 ML UDC 650 MG PO (20:22)
[2022-02-04] MEDS: INSULIN GLARGINE (*BKC) 100 UNITS/ML 22 UNITS SUB-Q (20:23)
[2022-02-04] MEDS: MELATONIN 5 MG TABLET 10 MG PO (20:27)
[2022-02-04 20:42] LABS: Glucose Point of Care 110 mg/dl (65-105)
[2022-02-05] VITALS (12 sets, daily range): BP systolic 100–118; BP diastolic 40–53; PULSE 71–96; RESP 18; TEMP 35.7–36.3; O2SAT 93–98
[2022-02-05 05:52] LABS: Basophils Percent Auto 0.2 % (0.2-1.2); Eosinophils Percent Auto 0.3 % (0-4.4); Hematocrit 23.3 % (37.0-47.0); Hemoglobin 7.5 g/dL (12.0-15.0); Immature Granulocyte Absolute 0.04 K/mm3 (0.00-0.031); Immature Granulocyte Percent A 0.6 % (0-0.5); Lymphocytes Absolute Auto 1.01 K/mm3 (0.9-3.2); Mean Corpuscular HGB Conc 32.2 g/dl (32-36); Mean Corpuscular Hemoglobin 35.7 pg (26-34); Mean Platelet Volume 9.2 fl (7.4-10.4); Monocytes Absolute Auto 0.8 K/mm3 (0.1-0.6); Monocytes Percent Auto 12.7 % (2.6-8.5); Neutrophils Absolute Auto 4.4 K/mm3 (1.3-6.7); Neutrophils Percent Auto 70.2 % (45.5-73.1); Nucleated Red Blood Cells Perc 0.3 % (0.0-0.2); Platelet Count Result 213 k/mm3 (150-375); Red Cell Distribution Width 16.4 % (11.5-14.5); White Blood Count 6.3 K/mm3 (4.5-10.0)
[2022-02-05 06:04] LABS: Anion Gap 7 mmol/L (8-16); Blood Urea Nitrogen 35 mg/dL (7-17); Calcium 8.1 mg/dL (8.4-10.2); Carbon Dioxide 28 mmol/L (22-30); Chloride 95 mmol/L (98-107); Estimated CRCL calculation 26 ml/min; Estimated Glomerular Filt Rate 31; Glucose 80 mg/dL (65-110); Potassium 3.4 mmol/L (3.4-5.0); Sodium 130 mmol/L (137-145)
[2022-02-05 08:12] LABS: Platelet Estimate Adequate (Adequate)
[2022-02-05 08:13] LABS: Atypical Lymphocytes Present; Smudge Cells PRESENT
[2022-02-05 08:33] LABS: Glucose Point of Care 71 mg/dl (65-105)
[2022-02-05] MEDS: SODIUM CHLORIDE 0.9% IV 1,000 ML 75 ML IV CONT (08:37)
[2022-02-05] MEDS: CALCIUM CARBONATE (OSCAL) 500 MG TABLET PO (08:40)
[2022-02-05] MEDS: FLUTICASONE PROPIONATE 0.05% NA SPR 16 GM BTL (*BKC) 2 SPRAY NASAL (08:40)
[2022-02-05] MEDS: SILVERGEL (ELTA) 45 ML 1 APPLIC TOPICAL (08:40)
[2022-02-05] MEDS: ASPIRIN 81 MG ENTERIC TABLET PO (08:40)
[2022-02-05] MEDS: ESTROGENS, CONJUGATED 0.625 MG TABLET 1.25 MG PO (08:41)
[2022-02-05] MEDS: LIDOCAINE 5% PATCH 1 PATCH TRANSDERM (08:43)
[2022-02-05] MEDS: PSYLLIUM POWDER PACKET 1 PACKET PO (08:43)
[2022-02-05] MEDS: MIRABEGRON 50 MG ER TABLET PO (08:43)
[2022-02-05] MEDS: PANTOPRAZOLE 40 MG TABLET PO (08:44)
[2022-02-05] MEDS: amLODIPine BESYLATE 5 MG TABLET PO (08:45)
[2022-02-05] MEDS: carvediloL 25 MG TABLET PO ×2 (08:50→18:32)
[2022-02-05] MEDS: LOSARTAN POTASSIUM 50 MG TABLET PO (08:52)
[2022-02-05] MEDS: ACETAMINOPHEN ELIXIR 325 MG/10.15 ML UDC 650 MG PO (09:02)
[2022-02-05] MEDS: BISACODYL 5 MG TABLET EC 10 MG PO (09:07)
--- NOTE | 2022-02-05 09:53 | PCPTNOTE ---
Patient refused treatment this session. Patient states she does not feel well and did not want to exercise or get out of bed.
[2022-02-05] MEDS: UMECLIDINIUM/VILANTEROL 62.5-25 MCG ELLIPTA 1 PUFF INHALATION (10:04)
[2022-02-05 10:47] LABS: Lactic Acid Reflex 1.1 mmol/L (0.7-2.0)
[2022-02-05 12:46] LABS: Glucose Point of Care 82 mg/dl (65-105)
--- NOTE | 2022-02-05 13:09 | PCNWS ---
Weekly nutritional screen. Patient has been tolerating diet with adequate intake. No weight loss reported. NPO at this time 2/2 surgery consult. No nutritional needs at this time.
--- NOTE | 2022-02-05 14:20 | PCRCNOTE ---
HOME O2 EVAL NOT NEEDED, PT IS BEING TRANSFERRED OUT
[2022-02-05] MEDS: SIMETHICONE 125 MG CHEW TAB PO (16:05)
--- NOTE | 2022-02-05 18:22 | PM.IMPN ---
Progress Note: A&P Assessment and Plan (1) Pulmonary embolism on right: Code(s): I26.99 - Other pulmonary embolism without acute cor pulmonale Status: Acute Assessment and Plan: INR 2.7 today, will hold off on coumadin for now pending vascular surgery eval (2) Lower extremity edema: Code(s): R60.0 - Localized edema Status: Acute Assessment and Plan: Improved. (3) Heart failure of unknown etiology: Code(s): I50.9 - Heart failure, unspecified Status: Acute Assessment and Plan: Monitor, appears compensated (4) Hypoxia: Code(s): R09.02 - Hypoxemia Status: Acute Assessment and Plan: Presumably related to PE though it is not very large. Wean oxygen as tolerated. current we receiving 2 L nasal cannula intermittently with exertion, home O2 eval pending (5) Renal failure: Code(s): N19 - Unspecified kidney failure Status: Acute Assessment and Plan: Monitor (6) Hyponatremia: Code(s): E87.1 - Hypo-osmolality and hyponatremia Status: Acute Assessment and Plan: Monitor labs. Sodium is at baseline 131 (7) Macrocytic anemia: Code(s): D53.9 - Nutritional anemia, unspecified Status: Acute Assessment and Plan: Monitor (8) Hypertension: Code(s): I10 - Essential (primary) hypertension Status: Acute Assessment and Plan: Blood pressures were reviewed and they are stable. Continue antihypertensives and monitor. (9) Chronic obstructive pulmonary disease: Code(s): J44.9 - Chronic obstructive pulmonary disease, unspecified Status: Acute Assessment and Plan: No acute issues. Continue inhalers. (10) Insulin dependent diabetes mellitus: Status: Acute Assessment and Plan: Continue basal insulin. Initiate sliding scale insulin, Accu-Cheks, and hypoglycemic protocol. (11) Abdominal pain: Code(s): R10.9 - Unspecified abdominal pain Status: Acute Assessment and Plan: Improved today. CT abdomen is negative. Plan on waiting list at [facility], accepted by vascular surgery and hospitalist urgently, hoping for bed in 1-2 days Subjective Date/time seen: 02/05/22 18:22 Interval history: Patient with continued abdominal pain, intermittent. No overnight events noted. No chest pain or shortness of breath. No nausea, vomiting or diarrhea. No fevers or chills. Review of Systems Review of Systems: 12 point review of systems was assessed and was negative except as noted in the HPI Exam Narrative: General: No acute distress, alert and oriented per baseline, somnolent HEENT: Atraumatic, normocephalic, mucous membranes moist CV: Regular rate and rhythm, S1, S2 Lungs: Clear to auscultation bilaterally, no rales or crackles noted, no wheezes, good air entry Abdomen: Soft, tender to palpation, nondistended, no peritoneal signs Extremities: Normal to inspection Skin: No rashes noted, no lesions or wounds seen Psych: Euthymic, normal affect Objective Data Vital Signs Vital Signs: Vital Signs - 24 hr 02/04/22 18:51 02/04/22 19:56 02/04/22 20:34 Temperature 98.4 F Pulse Rate 79 76 Respiratory Rate 16 18 Blood Pressure 94/50 L 99/44 L Pulse Oximetry 95 94 Oxygen Delivery Nasal Cannula Oxygen Flow Rate 2 02/04/22 20:00 02/05/22 00:00 02/05/22 04:00 Temperature Pulse Rate 79 71 74 Respiratory Rate Blood Pressure Pulse Oximetry Oxygen Delivery Oxygen Flow Rate 02/05/22 05:40 02/04/22 20:22 02/05/22 06:40 Temperature 96.3 F L 96.3 F L Pulse Rate 76 76 Respiratory Rate 18 18 Blood Pressure 104/48 L 104/48 L Pulse Oximetry 98 93 98 Oxygen Delivery Nasal Cannula Oxygen Flow Rate 2 02/05/22 08:50 02/05/22 08:00 02/05/22 08:00 Temperature Pulse Rate 80 80 Respiratory Rate Blood Pressure Pulse Oximetry 98 Oxygen
[2022-02-05 18:32] LABS: Glucose Point of Care 78 mg/dl (65-105)
[2022-02-05 20:16] LABS: Glucose Point of Care 74 mg/dl (65-105)
[2022-02-05] MEDS: ALPRAZolam (*CRX) 0.5 MG TABLET PO (20:57)
[2022-02-05] MEDS: SALINE LOCK FLUSH 10 ML IV PUSH (20:57)
[2022-02-10 20:06] LABS: Total Protein/Creatinine Ratio 314 mg/g creat (21-161)
[2022-02-11 11:12] LABS: Creatinine, Random Urine 35 mg/dL
--- NOTE | 2022-02-17 07:05 | PM.TDS ---
Transfer Discharge Sum: Prov Provider Date of admission: 01/29/22 13:51 Primary care physician: Shabbir Jean, Admitting clinician: Mac Caballero MD Consults: 01/28/22 Consult to Physician Routine Comment: Consulting Provider: Octaviano Winston Reason for consultation: PE Has provider been notified: Yes 02/04/22 Consult to Physician Routine Comment: Spoke to Lucy @ office 10:18am (,[place]) Consulting Provider: Harinder Cameron glassworker/MD group to consult: general surgery Reason for consultation: r/o median arcuate ligament syndrome on CT w/abd pain Has provider been notified: Yes Consult to Physician Routine Comment: Spoke to Dr Fowlre @ 10:15am (,[place]) Consulting Provider: Octaviano Winston glassworker/MD group to consult: oncology Reason for consultation: mult myeloma vs metastatic disease on CT Has provider been notified: Yes DS: Admitting Diagnosis Discharge Date 02/06/22 Admitting Diagnosis Chest pain DS: Discharge Diagnosis Discharge Diagnosis (1) Pulmonary embolism on right: Code(s): I26.99 - Other pulmonary embolism without acute cor pulmonale Status: Acute Assessment and Plan: INR 2.7 today, will hold off on coumadin for now pending vascular surgery eval (2) Abdominal pain: Code(s): R10.9 - Unspecified abdominal pain Status: Acute Assessment and Plan: Concern for median arcuate ligament syndrome with ischemia, recommend transfer to [facility] for vascular surgery evaluation (3) Lower extremity edema: Code(s): R60.0 - Localized edema Status: Acute Assessment and Plan: Improved. (4) Heart failure of unknown etiology: Code(s): I50.9 - Heart failure, unspecified Status: Acute Assessment and Plan: Monitor, appears compensated (5) Hypoxia: Code(s): R09.02 - Hypoxemia Status: Acute Assessment and Plan: Presumably related to PE though it is not very large. Wean oxygen as tolerated. current we receiving 2 L nasal cannula intermittently with exertion, home O2 eval pending (6) Renal failure: Code(s): N19 - Unspecified kidney failure Status: Acute Assessment and Plan: Monitor (7) Hyponatremia: Code(s): E87.1 - Hypo-osmolality and hyponatremia Status: Acute Assessment and Plan: Monitor labs. Sodium is at baseline 131 (8) Macrocytic anemia: Code(s): D53.9 - Nutritional anemia, unspecified Status: Acute Assessment and Plan: Monitor (9) Hypertension: Code(s): I10 - Essential (primary) hypertension Status: Acute Assessment and Plan: Blood pressures were reviewed and they are stable. Continue antihypertensives and monitor. (10) Chronic obstructive pulmonary disease: Code(s): J44.9 - Chronic obstructive pulmonary disease, unspecified Status: Acute Assessment and Plan: No acute issues. Continue inhalers. (11) Insulin dependent diabetes mellitus: Status: Acute Assessment and Plan: Continue basal insulin. Initiate sliding scale insulin, Accu-Cheks, and hypoglycemic protocol. Plan On waiting list at [facility], accepted by vascular surgery for possible median arcuate ligament syndrome and hospitalist urgently, hoping for bed in 1-2 days Transfer Discharge Sum: Med Medications Active and Home Medications: Home Medications acetaminophen 160 mg/5 mL oral elixir 650 mg PO Q6H PRN pain or fever 01/28/22 [History Confirmed 01/28/22] albuterol sulfate 90 mcg/actuation aerosol inhaler (ProAir HFA) 1 puff inhalation Q6H PRN Wheezing 01/28/22 [History Confirmed 01/28/22] alprazolam 0.5 mg tablet 0.5 mg PO DAILY 01/28/22 [History Confirmed 01/28/22] amlodipine 5 mg tablet 5 mg PO DAILY 01/28/22 [History Confirmed 01/28/22] apixaban 5 mg tablet (Eliquis) 5 mg PO BID 01/28/22 [History Confirmed 01/28/22] aspirin 81 mg tablet,
== END 2022-02-06 00:30 | disposition short-term general hospital (02) | DRG 176 ==
LOC: ANHED 11:42 → ANH3MED 14:05
PROVIDERS: Chiropractor; Internal Medicine; Internal Medicine Hematology & Oncology; Nurse Practitioner Family; Physician Assistant; Admitting Provider Internal Medicine; Emergency Provider Emergency Medicine; PCP Family Medicine; Visit Provider Student in an Organized Health Care Education/Training Program
DX: I26.99 Other pulmonary embolism without acute cor pulmonale (principal); I77.4 Celiac artery compression syndrome; E87.1 Hypo-osmolality and hyponatremia; Z20.822 Contact with and (suspected) exposure to COVID-19; I11.0 Hypertensive heart disease with heart failure; I50.9 Heart failure, unspecified; J44.9 Chronic obstructive pulmonary disease, unspecified; K21.9 Gastro-esophageal reflux disease without esophagitis; E78.5 Hyperlipidemia, unspecified; E11.9 Type 2 diabetes mellitus without complications; E11.51 Type 2 diabetes mellitus with diabetic peripheral angiopathy without gangrene; R60.0 Localized edema; D53.9 Nutritional anemia, unspecified; N19 Unspecified kidney failure; R09.02 Hypoxemia; R10.9 Unspecified abdominal pain; R79.89 Other specified abnormal findings of blood chemistry; R79.1 Abnormal coagulation profile; Z96.643 Presence of artificial hip joint, bilateral; Z79.01 Long term (current) use of anticoagulants; Z79.4 Long term (current) use of insulin; Z79.899 Other long term (current) drug therapy; Z86.16 Personal history of COVID-19; Z86.711 Personal history of pulmonary embolism; Z86.718 Personal history of other venous thrombosis and embolism; Z87.891 Personal history of nicotine dependence; Z90.49 Acquired absence of other specified parts of digestive tract; Z90.710 Acquired absence of both cervix and uterus; Z95.828 Presence of other vascular implants and grafts; Z96.82 Presence of neurostimulator; Z98.49 Cataract extraction status, unspecified eye
CPT/HCPCS: 36415; 36569; 71045; 71275; 74176; 80048; 80053; 81001; 82550; 82570; 82607; 82728; 82746; 82948; 83036; 83540; 83550; 83605; 83690; 83735; 83880; 83921; 83930; 83935; 84145; 84156; 84166; 84300; 84443; 84484; 85025; 85027; 85610; 85730; 86140; 87077; 87086; 87088; 87186; 93005; 93306; 93970; 94640; 96361; 96365; 96366; 96375; 97162; 97167; 97535; 99291; A9270; C1751; C9803; G0378; J1644; J1815; J1940; J1956; J2270; J3420; J7030; Q9967; U0003; U0005